=== PATIENT | male | born 1980 | race Caucasian/White ===

== ENCOUNTER 2018-09-22 14:14 | Inpatient (IN) | payer OTHER ==
[~2018-09-22] VITALS: Ht 177.8 cm; Wt 91.7 kg
[~2018-09-22 14:14] MED LIST: BACTRIM DS TAB1 EACH PO; CATAPRES0.1 MG PO; CREON 10 CAPSUL1 CA1 PO; METOPROLOL SUCC25 M1 PO; NORCO 5-325 TA1 EACH PO; PERCOCET 7.5-31 EACH PO; PROTONIX40 M1 PO; TRINATE TABLET1 TAB PO; VANCOMYCIN100 MG/M1 PO; VICODIN 5-5001 EACH PO; VITAMIN B-1100 M2 PO; XANAX1 MG PO; ZOFRAN4 MG PO
[2018-09-22 14:20] VITALS: BP 188/116
[2018-09-22 14:48] LABS: ABSOLUTE NEUTROPHILS 4.2 thou/uL (1.4-8.2); EOSINOPHILS 0.7 % (0.0-3.0); HEMOGLOBIN 15.7 gm/dL (14.0-18.0); RDW 13.5 % (10.5-14.5)
[2018-09-22 14:50] LABS: BASOPHILS 0.9 % (0.0-2.0); HEMATOCRIT 44.1 % (42.0-52.0); LYMPHOCYTES 18.1 % (24.0-44.0); MCH 32.8 pg (26.0-34.0); MCHC 35.6 g/dL (28.0-37.0); MCV 92.2 fL (80.0-100.0); MONOCYTES 4.7 % (1.0-8.0); PLATELET COUNT 170 thou/uL (150-400); POLYS 75.6 % (36.0-66.0); RBC 4.78 mil/uL (4.50-6.00); WBC 5.6 thou/uL (4.0-11.0)
[2018-09-22 14:54] LABS: BUN 21 mg/dL (7-18); CALCIUM 7.5 mg/dL (8.5-10.1); CHLORIDE 96 mmol/L (98-107); CREATININE 1.2 mg/dL (0.7-1.3); POTASSIUM 4.2 mmol/L (3.5-5.1); SODIUM 130 mmol/L (136-145)
[2018-09-22 15:01] LABS: DIRECT BILIRUBIN < 0.1 mg/dL (<0.1-0.3); LIPASE 427 U/L (73-393)
[2018-09-22 15:28] LABS: ALBUMIN 4.4 g/dL (3.4-5.0); ANION GAP 7 mmol/L (7-16); CO2 27 mmol/L (21-32)
[2018-09-22 15:42] LABS: GLUCOSE 259 mg/dL (74-106)
[2018-09-22 15:43] LABS: SGOT 199 U/L (15-37); SGPT 162 U/L (30-65)
[2018-09-22 15:59] LABS: TOTAL PROTEIN 8.6 g/dL (6.4-8.2)
[2018-09-22 16:07] LABS: URINE BILIRUBIN NEGATIVE (Negative); URINE BLOOD NEGATIVE (Negative); URINE CLARITY CLEAR; URINE COLOR YELLOW; URINE GLUCOSE-RANDOM* NEGATIVE (Negative); URINE KETONES NEGATIVE (Negative); URINE LEUKOCYTES NEGATIVE (Negative); URINE NITRITE NEGATIVE (Negative); URINE PROTEIN (DIPSTICK) NEGATIVE (Negative); URINE SPECIFIC GRAVITY 1.025 (1.005-1.035); URINE UROBILINOGEN 0.2 E.U./dl (0.2-1.0)
[2018-09-22 18:25] VITALS: BP 188/117
[2018-09-22 19:33] VITALS: BP 177/108
[2018-09-22 21:22] VITALS: BP 144/82
--- NOTE | 2018-09-23 01:14 | NUR ---
PT ARRIVED ON THE FALL @1949. A&OX4 DURING ASSESSMENT. WITH C/O PAIN ON ABDOMEN AND NAUSEA. MEDS GIVEN FOR MANAGEMENT SEE EMAR. POC DONE, FLUIDS INFUSING. DENIES GARCIA, OR SOB. WILL CONTINUE TO MONITOR TILL EOS
[2018-09-23 06:32] LABS: CREATININE 1.4 mg/dL (0.7-1.3); POTASSIUM 4.3 mmol/L (3.5-5.1)
[2018-09-23 06:36] VITALS: BP 173/103
[2018-09-23 08:12] VITALS: BP 140/103
--- NOTE | 2018-09-23 09:17 | NUR ---
Pt seen per nutrition screening, here with acute pancreatitis. Hx: pancreatitis, alcohol abuse, cocaine abuse, HTN. Currently on bowel rest, NPO except for meds/sips of liquid. Pt reports to RD this AM eating below his baseline for 3-4 days d/t pain. Eating well - multiple meals day - prior to onset of symptoms. States "weight is up." Records confirm this. Weighed 203-206# in 11/2015 and 04/2016, now at ~218#. BM reported last night, 09/22. Will monitor for timely diet advancement based on length of need for bowel rest, otherwise remains low nutrition risk. Did provide education on likely need for low fat diet when able to resume eating. See RD education note.
--- NOTE | 2018-09-23 10:13 | NUR ---
Assumed pt care at 0730.Pt in bed very restless and asking for cold water to drink.Assessment completed.vss but bp and hr was elevated.Nsg aluminum fabrication supervisor notified about moving the pt to telemetry bed but no response.Am meds given including ativan with relief.Dr Rivera notified.order noted.Pt will be transfered to [facility].Will comtinue to monitor.
[2018-09-23 12:10] VITALS: BP 131/93
[2018-09-23 15:31] VITALS: BP 136/96
--- NOTE | 2018-09-23 16:33 | NUR ---
ASSUMED PATIENT CARE AT 0700. PATIENT BEEN MOVED TO [facility] DUE TO RESTLESS COMFUSE. PATIENT STARTED AGIATED, IMPLUSIVE, HIT AND KICK NURSING STAFF. CIEW 13 AT 0800. STARTED RESTARINT AT 0830. PATIENT STILL TRY TO OUT OF BED WITH RESTARINT, CIW UP TO 20 AT 1020, TRANSFER TO ICU AT 1030. DR MCFARLAND AND FAMILY NOTIFIED.
--- NOTE | 2018-09-23 18:39 | NUR ---
PATIENT TRANSFER FROM . CIW 8. C/O ABD PAIN. PAIN MEDS GIVEN. NO N/V. WILL KEEP MONITOR.
[2018-09-23 20:05] VITALS: BP 111/86
[2018-09-23 23:05] LABS: GLYCOHEMOGLOBIN (HGB A1C) 5.3 % (4.8-5.6)
[2018-09-23 23:43] VITALS: BP 140/87
[2018-09-24] VITALS (39 sets, daily range): BP systolic 67–164; BP diastolic 36–88
[2018-09-24 02:26] LABS: AMP/METHAMP Negative (Negative); BARBITURATES Negative (Negative); BENZODIAZEPINES POSITIVE (Negative); COCAINE POSITIVE (Negative); METHADONE Negative (Negative); OPIATES POSITIVE (Negative); PCP Negative (Negative)
--- NOTE | 2018-09-24 02:42 | NUR ---
reassessed CIWA ; found that pt is actually a 23. gave addition 2 mg iv ativan. for a total of four milligrams of ativan as per his prescribed orders.
--- NOTE | 2018-09-24 04:07 | NUR ---
ENTIRE UNIT OF NURSES HAVE BEEN IN AND OUT OF THIS PATIENTS ROM ALL NIGHT. HE HAS REQUIRED CONTINUIOUS ATTENTION AND CARE. HE IS STRONG AND DETERMINED TO GET OUT OF BED. HIS HEART RATE HAS CONTINUED TO BE IN THE 130'SD TO 140'S ALL NIGHT. HIS RESP RATE HAS BEEN IN THE UPPER 30'S. I HAVE MEDICATED HIM AIMED AT CONTROLLING HIS ALCOHOL WITHDRAW. HE HAS HAD MULTIPLE INCIDENTS OF ALMOST FALLING WHEN ATTEMPTING TO GET OUT OF BED. HE HAS RECIEVED TWO FLUID BOLUSES TONIGHT, HELP HIS DEHYDRATION AND ELEVATED HEART RATE. HIS CIWA HAS BEEN HIGH A 23. AT THIS TIME HE IS RESTING AND HIS CIWA IS AN 8.
[2018-09-24 05:30] LABS: ALBUMIN 2.8 g/dL (3.4-5.0); CALCIUM 6.9 mg/dL (8.5-10.1); CREATININE 1.6 mg/dL (0.7-1.3); MAGNESIUM 1.7 mg/dL (1.8-2.4); POTASSIUM 4.4 mmol/L (3.5-5.1); TOTAL BILIRUBIN 2.2 mg/dL (<0.1-1.0); TOTAL PROTEIN 6.6 g/dL (6.4-8.2)
--- NOTE | 2018-09-24 07:00 | NUR ---
Pt received into room 242 earlier this am, made comfortable in bed and monitor applied. See rhythm strip. Pt extremely restless and started on precedex gtt. PRN fentanyl given for c/o abdominal pain with desired effect achieved. VS stable and SpO2 adequate on RA. Pt now resting comfortably and quietly. Continue with POC.
--- NOTE | 2018-09-24 13:40 | NUR ---
PT CONFUSED, RESTLESS, AGITATED TODAY. PRECEDEX GTT INFUSING. PRN ATIVAN GIVEN FOR ELEVATED CIWA. PT VERY IMPULSIVE PULLING AT LINES AND ATTEMPTING TO GET OUT OF BED FREQUENTLY, NOT RESPONDING TO SAFE LIMIT SETTING OR REDIRECTION. PT PLACED IN BILAT WRIST RESTRAINTS. SPOKE WITH PT'S BROTHER AND UPDATED HIM. CONSULTS PLACED TO PSYCH AND GI SERVICES. WILL CONTINUE TO MONITOR PATIENT.
--- NOTE | 2018-09-24 16:20 | NUR ---
VERY AGITATED THIS AFTERNOON. THREATENING AND ATTEMPTING TO KICK RN'S. SECURITY CALLED AND ATIVAN GIVEN. PT NOW SLEEPING. WILL CONTINUE TO MONITOR PATIENT.
--- NOTE | 2018-09-24 19:08 | NUR ---
VERY AGITATED, IMPULSIVE, ATIVAN GIVEN AND PRECEDEX INFUSING. DR TERRY NOTIFIED AND ORDER OBTAINED FOR SITTER. SECURITY AT BEDSIDE FREQUENTLY THIS AFTERNOON. REPORT GIVEN TO BRUNO KIRKLAND.
--- NOTE | 2018-09-24 21:43 | NUR ---
Pt has been pulling at restraints and attempting to get out of bed since change of shift despite Precedex, Ativan IVP, and Fentanyl. At 2049 pt became even more aggitated, swearing and calling nurses foul names and throwing lower body off the bed. It was noted at that time that left forearm IV was infiltrated. Security was called; staff able to get pt back in bed before security arrival and also able to notify MANAGER WILLOW line construction supervisor who gave order for IM Haldol. Pt given IM Haldol which decreased his aggitation enough for IV therapy to start a #22 guage in his upper right arm. Pt now resting comfortably, still completely disoriented, has visual hallucinations of beetles on floor of room, and intermittent sweating.
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
[2018-09-25] VITALS (29 sets, daily range): BP systolic 115–162; BP diastolic 54–93
[2018-09-25 05:08] LABS: ALBUMIN 2.5 g/dL (3.4-5.0); CALCIUM 7.4 mg/dL (8.5-10.1); CREATININE 1.6 mg/dL (0.7-1.3); MAGNESIUM 2.2 mg/dL (1.8-2.4); POTASSIUM 3.9 mmol/L (3.5-5.1); TOTAL BILIRUBIN 1.2 mg/dL (<0.1-1.0); TOTAL PROTEIN 6.4 g/dL (6.4-8.2)
[2018-09-25 05:40] LABS: HEMATOCRIT 34.8 % (42.0-52.0); HEMOGLOBIN 11.5 gm/dL (14.0-18.0); MCH 31.5 pg (26.0-34.0); MCHC 33.1 g/dL (28.0-37.0); MCV 95.2 fL (80.0-100.0); RBC 3.66 mil/uL (4.50-6.00); RDW 13.8 % (10.5-14.5); WBC 3.1 thou/uL (4.0-11.0)
--- NOTE | 2018-09-25 06:02 | NUR ---
Pt has continued to have a CIWA score of 15-19 despite Precedex, Ativan, and Haldol as ordered. Soft wrist restraints bilaterally. Right leg restraint released, but left leg remains in soft restraint. Pt continues to cuss at staff, attempts OOB frequently. Speech usually garbled. Precedex maxed at 1.8 mcg/kg/min. O2 sat remains > 93 % on room air despite sedatives. Monitor sinus rhythm. Alicia patent with very dark ethan urine. Pt has had sitter at bedside during night, but will not have one during day shift according to greenhouse transplanter. Plan is to keep pt with 1:1 nurse for now to maintain patient safety.
--- NOTE | 2018-09-25 16:12 | NUR ---
PATIENT HAS EXHIBITED INAPPROPRIATE AND UNRULY BEHAVIOR MOST OF THE DAY, RESTLESS, KICKING, CURSING AND USING INAPPROPRIATE LANGUAGE AND VERBALLY ABUSING STAFF. SECURITY OFFICERS CALLED MULTIPLE OF TIMES ALL DURING THE DAY TO ASSIST WITH KEEPING STAFF AND PATIENT SAFE. VITALS STABLE. DR. GALAN NOTIFIED DURING ROUNDING AND VIA PHONE CALL THIS AFTERNOON REGARDING PATIENT'S UNRULY BEHAVIOR. ORDERS FOR VERSED RECEIVED AND INITIATED. DR. MOSLEY WITH PSYCH ALSO NOTIFIED ALSO AND ROUNDED ON THE PATIENT AND CHANGED SOME MEDICATION ORDERS. PATIENT HAS CONTINUED WITH AGGRESIVE BEHAVIOR AND INAPPROPRIATE LANGUAGE AND NEW MEDS ADMINISTERED, PATIENT IS NOW STARTING TO CALM DOWN AND MUMBLE. WILL CONTINUE TO MONITOR FOR SAFETY OF PATIENT AND STAFF. PATIENT ASSIGNED WITH ONE TO NONE RN FOR SAFETY CONCERNS.
[2018-09-26] VITALS (41 sets, daily range): BP systolic 104–254; BP diastolic 53–121
--- NOTE | 2018-09-26 03:22 | NUR ---
PT HAS BEEN AGITATED, RESTLESS, COMBATIVE AND VERBALLY ABUSIVE TO STAFF, SECURITY OFFICERS HAS BEEN CALLED A FEW TIMES ON PT, MEDS GIVEN ORDERED. NOTIFIED GITA LEE OF PT'S CONTINUED UNSAFE BEHAVIORS AND RECEIVED ORDERS. GAVE MARY X1. PT SOMEWHAT CALM AFTER MARY, PROJECT INTERNSHIP CURRENTLY IN ROOM, WILL MONITOR,
[2018-09-26 07:01] LABS: ALBUMIN 2.5 g/dL (3.4-5.0); CALCIUM 7.7 mg/dL (8.5-10.1); CREATININE 1.2 mg/dL (0.7-1.3); POTASSIUM 3.8 mmol/L (3.5-5.1); TOTAL PROTEIN 5.6 g/dL (6.4-8.2)
--- NOTE | 2018-09-26 07:45 | NUR ---
RECEIVED REPORT AND ASSUMMED CARE. PATIENT INCONTIENT AND RESTLESS. SECURITY HERE. LINENS CHANGED. ATIVAN GIVEN.
--- NOTE | 2018-09-26 08:47 | NUR ---
Change in nutrition status to high risk with intubation 09/26
--- NOTE | 2018-09-26 10:15 | NUR ---
PATIENT VERY AGGITATED AND COMBATIVE, THROWING LEGS OVER LEFT SIDE OF THE BED AND SCOOTING DOWN. ATIVAN GIVEN EARILIER. DR GALAN HERE. ATTEMPTED TO ADJUST SEDATION BUT NO CHANGE IN STATUS. SECURITY HERE. PLAN TO INTUBATE
--- NOTE | 2018-09-26 11:45 | NUR ---
PATIENT INTUBATED BY ANETHETHIA, PROPOFOL AND ROCURNIUM GIVEN BY PROVIDER FOR THE PROCEDURE. 8.0 ETT USE AT 1053. ETT SECURED AND ORAL GASTRIC TUBE INSERTED. MONITOR SHOWING ST WITH A RATE OF 140 TO 160 AND BP ELEVATED. CARDIZEM, AND ATIVAN GIVEN AND PROPOFOL TITRATED TO SEDATE PATIENT. HEART RATE AND BP IMPROVED.
[2018-09-26 12:00] LABS: BE(vivo) -10.5 mmol/L (-2 to +3); HCO3 13.9 mmol/L (22.0-26.0); PCO2 26.9 mmHg (35.0-45.0); PO2 128.6 mmHg (80.0-100.0); pH 7.332 (7.360-7.450); sO2 98.4 % (92.0-98.0)
--- NOTE | 2018-09-26 13:05 | NUR ---
CONSULTED TO PLACE A PICC FOR A PATIENT POST INTUBATION IN THE ICU. ORDER AND CONSENT NOTED. THE PATIENT DOES NOT RESPOND TO TEACHING. THE RUE BASCILIC WAS WIDLEY PATENT. A #5F TRIPLE LUMEN POWER PICC WAS PLACED PER HOSPITAL POLICY AFTER A BEDSIDE TIMEOUT WAS COMPLETED. THE PICC WAS 50CM AND ADVANCED WITHOUT DIFFICULTY. A STAT CHEST XARAY WAS ORDERED FOR CONFIRMATION.
[2018-09-26 15:26] LABS: BE(vivo) -8.1 mmol/L (-2 to +3); HCO3 15.8 mmol/L (22.0-26.0); PCO2 27.7 mmHg (35.0-45.0); PO2 144.6 mmHg (80.0-100.0); pH 7.374 (7.360-7.450); sO2 98.8 % (92.0-98.0)
[2018-09-26 18:55] LABS: CALCIUM 8.5 mg/dL (8.5-10.1); CREATININE 1.2 mg/dL (0.7-1.3); POTASSIUM 3.8 mmol/L (3.5-5.1)
--- NOTE | 2018-09-26 19:00 | NUR ---
PATIENT RESTED MOST OF THE DAY, PRECIDEX WEANED OFF AND ATIVAN GIVEN PATIENT IS COUGHING, AND MORE RESTLESS AND INCONTIENT OF STOOL. SEDATION INCREASED AND ATIVAN GIVEN WITH LITTLE RELIEF
[2018-09-27] VITALS (36 sets, daily range): BP systolic 104–203; BP diastolic 51–138
[2018-09-27 03:04] LABS: HEMATOCRIT 30.1 % (42.0-52.0); HEMOGLOBIN 10.1 gm/dL (14.0-18.0); MCH 32.1 pg (26.0-34.0); MCHC 33.5 g/dL (28.0-37.0); MCV 95.7 fL (80.0-100.0); RBC 3.14 mil/uL (4.50-6.00); RDW 13.4 % (10.5-14.5); WBC 5.2 thou/uL (4.0-11.0)
[2018-09-27 03:15] LABS: ALBUMIN 2.2 g/dL (3.4-5.0); CALCIUM 7.9 mg/dL (8.5-10.1); CREATININE 1.3 mg/dL (0.7-1.3); POTASSIUM 3.2 mmol/L (3.5-5.1); TOTAL BILIRUBIN 0.5 mg/dL (<0.1-1.0); TOTAL PROTEIN 6.5 g/dL (6.4-8.2)
--- NOTE | 2018-09-27 08:00 | NUR ---
ASSUMED CARE. PATIENT RESTLESS AND SEDATED
[2018-09-27 08:15] LABS: BE(vivo) -7.3 mmol/L (-2 to +3); HCO3 16.4 mmol/L (22.0-26.0); PCO2 28.9 mmHg (35.0-45.0); PO2 82.3 mmHg (80.0-100.0); pH 7.371 (7.360-7.450)
--- NOTE | 2018-09-27 08:50 | NUR ---
PT HAD HIGH GRADE FEVER LAST NIGHT, SLIGHT RELIEF FROM TYLENOL ALSO ICE PACKS AND WET CLOTHS PLACED ALL OVER PT. CROSS CUT SAW OPERATOR CARLOS WAS NOTTIFIED AND BLOOD CULTURES WERE DRAWN AND SENT LAST NIGHT. KUB WAS DONE THIS AM. K REPLACED THIS MORNING.PT WAS KEPT MODERATELY SEDATED ON PROPOFOL, ATIVAN AND FENTANYL WAS GIVEN PRN. WITH LESS SEDATION PT GETS MORE TACHYPNEIC IN THE 30'S TO 40'S, WITH HIGH BP AND ELEVATED HR 130'S TO 140'S. PT HAS SHORT RESTFUL EPISODES, FOLLOWING ATIVAN / FENTANYL. FECAL MANAGEMENT WAS PLACED FOR LIQUID STOOL, AND IS DRAINING MODERATE AMOUNTS OF BROWN STOOL/ NG TUBE HAD 750 OUT OF BROWN FLUID. IVF INFUSING AT 125, URINE OUTPUT ADEQUATE. PT'S ABD IS SLIGHTLY FIRM AND DISTENDED. RESTRAINTS WERE MAINTAINED, PT EASILY AWAKE WITH STIMULATION OR SUCTIONING. THICK CREAMY SECRETIONS SUCTIONED, MODERATE AMOUNTS, SPUTUM SAMPLE WAS SENT TO LAB.
--- NOTE | 2018-09-27 20:00 | NUR ---
PATIENT KEPT SEDATED AND GIVEN PAIN MEDICATION NEEDED, REMAINS IN A ST WITH SLIGHT RELIEF AFTER FENTANYL. HYDRALAZINE GIVEN FOR ELEVATED BP WITH SOME RELIEF, PT REMANINED FEBRILE WITH COOLING BLANKET AND ICE PACKS IN PLACE, CONTINUE TO SUCTION COPIOUS AMTS OF THIN BROWN SECRETIONS.
[2018-09-28] VITALS (40 sets, daily range): BP systolic 80–179; BP diastolic 40–86
--- NOTE | 2018-09-28 05:09 | NUR ---
ASSUMED CARE OF PATIENT AT 1900. FEBRILE, TACHYCARDIC AND RESTLESS VERSED, PROPOFOL AND CARDIZEM TITRATED PER ORDERS, SEE FLOW SHEET. COOLING PAD PLACED UNDERNEATH PATIENT, RATHER THAN ON TOP. TEMPERATURE NOW WITHIN NORMAL LIMITS. HEART RATE NO LONGER IN THE 130, CARDIZEM GTT OFF AT 0400. COMPLETE BATH GIVEN. ORAL CARE WELL, TURNED Q2. APPEARS TO BE MUCH MORE COMFORTABLE AT THIS TIME. WORKING TOWARDS POC GOALS.
[2018-09-28 05:40] LABS: HEMATOCRIT 29.9 % (42.0-52.0); HEMOGLOBIN 10.2 gm/dL (14.0-18.0); MCH 32.3 pg (26.0-34.0); MCV 94.8 fL (80.0-100.0); RBC 3.16 mil/uL (4.50-6.00); RDW 13.6 % (10.5-14.5); WBC 9.2 thou/uL (4.0-11.0)
[2018-09-28 05:59] LABS: ALBUMIN 1.9 g/dL (3.4-5.0); CALCIUM 8.3 mg/dL (8.5-10.1); CREATININE 1.4 mg/dL (0.7-1.3); POTASSIUM 3.8 mmol/L (3.5-5.1); TOTAL BILIRUBIN 0.6 mg/dL (<0.1-1.0); TOTAL PROTEIN 6.5 g/dL (6.4-8.2)
--- NOTE | 2018-09-28 09:28 | NUR ---
Recommend tube feeding of vital high protein to start 30ml/hr and progress as tolerated to goal of 45ml/hr while on propofol
--- NOTE | 2018-09-28 14:54 | HC ---
[facility] [place] [address] CONSULTATION Name: MICKI HANSEN Room #: 242-P [facility] IN M.R.#: [id number] Admission: 09/22/18 Attend Phys: Taylor Rivera Discharge: Date of : 76 Report #: [id number] THIS REPORT FOR: //name// CC: KELLY physician/PCP Taylor Rivera DATE OF SERVICE: 09/25/2018 REASON FOR CONSULTATION: The patient has a history of severe agitation and delirium at this point. He has a history of alcoholic pancreatitis. He also has a history of anxiety. The patient is very upset, agitated. He lacks capacity as he does not understand the risks and benefits of leaving the hospital at this time. He cannot reliably discuss his care and condition. He is very agitated, and they have been trying different medication approaches. We were asked to see this patient actually for alcohol and rehabilitation options, essentially those would be better served by psychotherapist social worker in the hospital looking around to different programs based on the patient's desire. We will help follow him for that and also help assist with agitation as well. The patient has been showing fairly stable vital signs. He is on a Precedex drip. They are about to start a Versed drip. He is on clonidine. So far, they have tried to use Haldol, a dose of Geodon. He has had 10 mg of Ativan in the last 24-hour period. He is rambling. He is not easily understood. He does not keep track of conversation. He is fairly agitated. He is in a soft restraint. He is not finding them, but he is frequently restless and tries to get up. He cannot provide a great history. He does acknowledge that he was drinking and he was clear on admission. He was not taking any medications, and he is positive for amphetamines and stimulants prior to admission. PSYCHIATRIC HISTORY: Polysubstance abuse, anxiety, alcohol abuse, cocaine abuse. MEDICAL HISTORY: He has acute kidney insufficiency, fever. He has metabolic disturbances, hypertension. ALLERGIES: No known drug allergies. His vital signs are stabilizing. He has acute pancreatitis. MENTAL STATUS EXAMINATION: The patient is alert. He is orientated to being at [facility] and himself. He does not know the time. Does not know how long he has been here. He is not able to discuss his care and treatment reliably. Affect is intense, wide ranging. Thought process is perseverative. Insight and judgment are poor and impaired and lacks capacity to make medical [facility] [address] [place] [address] CONSULTATION Name: MICKI HANSEN Room #: 242-P [facility] IN [facility]#: [id number] Admission: 09/22/18 Attend Phys: Taylor Rivera Discharge: Date of : 76 Report #: [id number] decision at this time. IMPRESSION: AXIS I: 1. Delirium. 2. Agitation. 3. Anxiety. 4. Polysubstance abuse. AXIS II: Deferred. AXIS III: As above. AXIS IV: Severe. AXIS V: Global Assessment of Functioning currently 20%. PLAN: We will add Thorazine for agitation. We are going to start a Versed drip, but his vital signs are more stable, so I try to actually keep the Versed drip on the lower end and I will discuss this with the nurse. I think we are seeing is a mix of delirium and agitation and less of the withdrawal side as days have gone by, so on Precedex, hopefully should be better, the Versed is only for behavioral control rather than withdrawal. Titrated back off benzodiazepine injection as much as he can at this point. Thank you for the consultation. We will follow the patient with you closely. Any questions, give us a call. <ELECTRONICALLY SIGNED> By: Amelia Ron MD 09/28/18 [id number] [id number] Jesus Manuel Gastelum MD /nt
--- NOTE | 2018-09-28 19:23 | HC ---
[facility] [place] [address] CONSULTATION Name: MICKI HANSEN Veena Room #: 242-P [facility] IN ..#: [id number] Admission: 09/22/18 Attend Phys: Taylor Rivera Discharge: Date of : 76 Report #: [id number] THIS REPORT FOR: //name// CC: FAM physician/PCP Taylor Rivera DATE OF SERVICE: 09/26/2018 REFERRING PHYSICIAN: Dr. Rivera. REASON FOR REFERRAL: Acute respiratory distress, alcohol withdrawal. HISTORY OF PRESENT ILLNESS: The patient is a 38-year-old white male who was admitted on 09/22/2018 with abdominal pain. He was subsequently found to have alcohol withdrawal, acute pancreatitis. He also has a history of polysubstance abuse. Since admission, the patient has had trouble with alcohol withdrawal. He is on alcohol withdrawal protocol, he was given Ativan, etc. The patient is awake, intermittently confused, he was said to be combative, agitated at times. He appears somewhat restless. PAST MEDICAL HISTORY: As mentioned above including history of alcohol abuse, marijuana use, apparently cocaine use based on urine drug screen, history of pancreatitis, hypertension. PAST SURGICAL HISTORY: Cholecystectomy. ALLERGIES: None noted. MEDICATIONS: From home are clonidine 0.1 mg b.i.d. CURRENT MEDICATIONS: Reviewed in the MAR. FAMILY HISTORY: Unknown. SOCIAL HISTORY: He does smoke, alcohol abuse as mentioned above. Also, smokes marijuana. REVIEW OF SYSTEMS: Deferred as the patient is encephalopathic. PHYSICAL EXAMINATION: GENERAL: He is awake, appears restless, episodically confused. VITAL SIGNS: Temperature of 102 degrees Fahrenheit, pulse is 90, respiratory rate is 25, blood pressure is 120/78 mmHg, saturation 99%. HEENT: Normocephalic, atraumatic. NECK: Supple, without lymphadenopathy or thyromegaly. [facility] [address] [place] [address] CONSULTATION Name: MICKI HANSEN Room #: 242-P [facility] IN ..#: [id number] Admission: 09/22/18 Attend Phys: Taylor Rivera Discharge: Date of : 76 Report #: [id number] CHEST: Breath sounds are fair, clear without any obvious rales or wheezes. CARDIOVASCULAR: Normal S1, S2. No murmurs or gallop. There is no JVD, no carotid bruit. Pulses are 2+/4+ bilaterally. ABDOMEN: Mildly distended. No obvious rebound tenderness. GENITOURINARY: Deferred. RECTAL: Deferred. EXTREMITIES: There is no edema, cyanosis or clubbing. LABORATORY DATA: Portable chest x-ray shows small lung volumes, bibasilar atelectasis, increasing interstitial markings. Lipase 1200. Recent CT abdomen and pelvis shows acute pancreatitis. Arterial blood gas revealed pH 7.33, pCO2 26, pO2 128 on FiO2 at 80%. Electrolytes: Sodium 138, potassium 3.8, chloride 106, CO2 is 19, BUN is 16, creatinine is 1.2. Liver enzymes are mildly abnormal. WBC hemoglobin 11.5, platelets are mildly decreased. Albumin 2.5. IMPRESSION: 1. Acute alcohol withdrawal, severe. 2. Encephalopathy with delirium, agitation. 3. Acute pancreatitis. 4. Polysubstance abuse including cocaine and marijuana. 5. Alcoholic liver disease. 6. Hypertension. 7. Tobacco abuse. No known history of chronic obstructive pulmonary disease. 8. Acute kidney injury. RECOMMENDATION AND DISCUSSION: Pulmonary service was asked to see the patient regarding possible intubation. At this time, the patient is able to maintain airway and saturation is adequate on supplemental O2. It appears that the patient would benefit from increased doses of benzodiazepine for his withdrawal symptoms. I note that the protocol calls for Ativan every 2 hours. Would increase the interval to every 20-30 minutes at 1-2 mg if possible. May need additional sedation such as Diprivan if needed. If, however, with the sedation, patient's airway is compromised or develops profound hypoxia, at that point in time, I think elective intubation will be appropriate. At this time, I would recommend increasing his medications for alcohol withdrawal. IV has been an issue. I would suggest a large bore IV possible or maybe even a PICC line. I do not think intubating the patient to place an IV is necessary, but I consensus increasing sedation as tolerated. This was discussed in detail with the primary medicine team and nursing. Critical care time [address] [address] CONSULTATION Name: MICKI HANSEN Room #: 242-P [facility] IN .R.#: [id number] Admission: 09/22/18 Attend Phys: Taylor Rivera Discharge: Date of : 76 Report #: [id number] Thank you for this consultation. <ELECTRONICALLY SIGNED> By: Raul Weeks MD 09/28/18 [id number] 1023 Raul Weeks MD /nt
[2018-09-29] VITALS (24 sets, daily range): BP systolic 93–143; BP diastolic 53–98
[2018-09-29 05:28] LABS: BE(vivo) -6.1 mmol/L (-2 to +3); HCO3 19.2 mmol/L (22.0-26.0); PCO2 37.2 mmHg (35.0-45.0); PO2 249.5 mmHg (80.0-100.0); pH 7.331 (7.360-7.450); sO2 99.5 % (92.0-98.0)
[2018-09-29 05:46] LABS: HEMATOCRIT 23.7 % (42.0-52.0); MCH 32.1 pg (26.0-34.0); MCHC 34.1 g/dL (28.0-37.0); MCV 94.2 fL (80.0-100.0); RBC 2.52 mil/uL (4.50-6.00); WBC 10.9 thou/uL (4.0-11.0)
[2018-09-29 05:55] LABS: CALCIUM 8.5 mg/dL (8.5-10.1); CREATININE 1.3 mg/dL (0.7-1.3); POTASSIUM 3.9 mmol/L (3.5-5.1)
[2018-09-29 05:59] LABS: ALBUMIN 1.8 g/dL (3.4-5.0); DIRECT BILIRUBIN 0.3 mg/dL (<0.1-0.3); TOTAL BILIRUBIN 0.4 mg/dL (<0.1-1.0); TOTAL PROTEIN 5.2 g/dL (6.4-8.2)
[2018-09-29 06:05] LABS: HEMOGLOBIN 8.1 gm/dL (14.0-18.0)
--- NOTE | 2018-09-29 06:44 | NUR ---
PATIENT ON LIGHT SEDATION, FOLLOWS COMMANDS. SINUS RHYTHM ON FILER HELPER. ON VENTILATOR FIO2 60%. OG TUBE TO LOW INTERMITTENT SUCTION. WALSH AND RECTAL TUBE INTACT. TEMPERATURE NORMALIZED. RESTRAINTS RENEWED. TURNED Q2H. FAMILY UPDATED ON THE PLAN OF CARE, NO SIGNS OF ACUTE DISTRESS NOTED AT THIS TIME. WILL CONTINUE TO MONITOR.
--- NOTE | 2018-09-29 17:34 | NUR ---
CM ASSESSMENT: CASE OPENED FOR DC PLANNING. CLINICAL INFO REVIEWED. PT ADMITTED WITH ABD PAIN, ACUTE PANCREATITIS, ETOH WITHDRAWAL ONCE HERE. ESCALATING WITHDRAWAL BEHAVIORS WARRANTED INTUBATION AND CONINTUES ON VENT. LIVES WITH BROTHER IN HOUSE AND WORKS BUT DOES NOT HAVE HEALTH INSURANCE. PT HAS BEEN ADMITTED TO [facility] IN PAST FOR ETOH WITHDRAWAL AND DECLINED RESOURCES FOR TREATMENT. WILL FOLLOW TO ASSIST WITH NEEDS AT DC AND APPROACH PT FOR ETOH RESOURCES AGAIN.
[2018-09-30] VITALS (24 sets, daily range): BP systolic 95–168; BP diastolic 55–101
[2018-09-30 06:01] LABS: HEMATOCRIT 24.1 % (42.0-52.0); HEMOGLOBIN 8.1 gm/dL (14.0-18.0); MCH 32.1 pg (26.0-34.0); MCHC 33.7 g/dL (28.0-37.0); MCV 95.2 fL (80.0-100.0); RBC 2.54 mil/uL (4.50-6.00); RDW 14.4 % (10.5-14.5); WBC 9.1 thou/uL (4.0-11.0)
--- NOTE | 2018-09-30 07:23 | NUR ---
PATIENT ON SEDATION, FOLLOWS COMMANDS AND ABLE TO NOD TO YES/NO QUESTIONS. PATIENT IS IMPULSIVE AND TRIES TO PULL OUT TRACHEAL TUBE FOR VENTILATOR. SINUS TACHYCARDIA ON GRAPHITE GRINDER. OG TUBE PATENT, TOLERATING TUBE FEEDING. WALSH AND FECAL MANAGEMENT SYSTEM INTACT. BLOOD SUGAR MONITORED. NO SIGNS OF ACUTE DISTRESS NOTED AT THIS TIME. WILL CONTINUE TO MONITOR.
--- NOTE | 2018-09-30 10:51 | NUR ---
PT'S MOTHER AND SISTER HERE THIS AM. MOTHER IS АЛЕКСАНДР JACOBO [phone]. DR. GALAN SPOKE WITH MOTHER AND SISTER. CM TO FOLLOW TO CALL MOTHER NOT IN PT ROOM OR WAITING ROOM WHENCHECKED AT 1045. PT REMAIN ON VENT AND DIFFICULT TO SEDATE ON VERSED AND FENTANYL GTTS SO PROPOFOL WAS RESTARTED.
[2018-09-30 11:11] LABS: BE(vivo) -2.9 mmol/L (-2 to +3); HCO3 22.8 mmol/L (22.0-26.0); PCO2 43.5 mmHg (35.0-45.0); pH 7.338 (7.360-7.450); sO2 84.3 % (92.0-98.0)
[2018-09-30 11:13] LABS: PO2 51.6 mmHg (80.0-100.0)
--- NOTE | 2018-09-30 16:52 | NUR ---
MET WITH PT'S MOTHER IVETTE, SHE IS FROM [place]. PT'S BROTHER BRANDI ALSO [place]. PT LIVES WITH BRANDI. FAMILY INTERESTED IN PT GOING TO DRUG/ETOH TREATMENT WHEN MEDICALLY STABLE INFORMED THEM CASE MANAGEMENT TO FOLLOW PT AND PROVIDE RESOURCES FOR FOLLOW UP CARE AND DRUG/ALCOHOL TREATMENT TO PT BUT ULTIMATELY PT'S DECISION.
--- NOTE | 2018-09-30 19:40 | NUR ---
PT CONTINUES TO BE RESTLESS AND AGITATED THIS AM. DR GALAN HERE THIS AM AND DISCUSSED SEDATION PLAN. VERSED TITRATED UP TO 10MG/HR AND FENT CONTINUES. PROPOFOL TURNED OFF. PT BECAME VERY AGITATED, THRASHING AND O2 SATS DECREASED. PROPOFOL RESTARTED. ABG'S DRAWN AND RESULTS GIVEN TO DR MARADIAGA. COPIOUS AMOUNT OF THICK CHENG SPUTUM SUCTIONED. PT'S FAMILY AT BEDSIDE AND UPDATED. TUBE FEEDING INCREASED ORDERED. REPORT GIVEN TO ORE FEEDER RN.
[2018-10-01] VITALS (24 sets, daily range): BP systolic 108–156; BP diastolic 58–97
[2018-10-01 05:31] LABS: HEMATOCRIT 24.1 % (42.0-52.0); MCHC 33.4 g/dL (28.0-37.0); RBC 2.51 mil/uL (4.50-6.00); RDW 14.3 % (10.5-14.5); WBC 7.3 thou/uL (4.0-11.0)
[2018-10-01 05:47] LABS: ALBUMIN 1.7 g/dL (3.4-5.0); CALCIUM 8.5 mg/dL (8.5-10.1); CREATININE 1.3 mg/dL (0.7-1.3); MAGNESIUM 2.2 mg/dL (1.8-2.4); TOTAL BILIRUBIN 0.6 mg/dL (<0.1-1.0); TOTAL PROTEIN 6.1 g/dL (6.4-8.2)
[2018-10-01 05:49] LABS: POTASSIUM 2.9 mmol/L (3.5-5.1)
[2018-10-01 05:57] LABS: BE(vivo) -0.7 mmol/L (-2 to +3); HCO3 24.7 mmol/L (22.0-26.0); PCO2 44.6 mmHg (35.0-45.0); PO2 145.4 mmHg (80.0-100.0); pH 7.362 (7.360-7.450); sO2 98.8 % (92.0-98.0)
--- NOTE | 2018-10-01 06:00 | NUR ---
ASSUMED CARE OF PT. AT 1900. PT. REMAINSSEDATED, WILL GET AGITATED WHEN MOVED. MEDICATION TITRATION CHARTED. PT. REMAINS FEBRILE. VSS, SINUS TACHYCARDIC ON MONITOR. ADEQUATE URINARY OUPUT, FECAL MANAGEMENT SYSTEM IN PLACE. TUBE FEEDINGS TURNED OFF BETWEEN 2000 AND MIDNIGHT DUE TO HIGH RESIDUALS. PLAN OF CARE IS TO CONTINUE TO REST PT. AND KEEP ON MECHANICAL VENTILATION WITH SEDATION. WILL CONTINUE TO MONITOR.
--- NOTE | 2018-10-01 17:16 | NUR ---
Shift summary; Pt was sedated. Calm. No verbal response to voice. Propofol gtt @50mcg/min, Versed gtt @10mcg, fentanyl gtt @10ml/hr. Vent A/C, RR14, tV-550, FiO2 55%. OG tube in place. Restraint x2. Alicia and fecal system in place. 0800-FiO2 was changed to 45% 0950-Dr. Rivera at bedside and told this nurse to do sedation vacation. 0955-Propofol was turned off for sedation vacation. 1017-Pt opened eyes, calm and followed commands to credit card associate this nurse's fingers. 1120-Paged Dr. Weeks, terminal gauger supervisor re weaning Vent out. Dr. Weeks returned to the phone and stated that pt should be on Vent continuously since CXray for today was shown possible pneumonia. 1125-Pt became very restless. Fecal system is out. 1127-Propofol was resumed @50mcg. 1137-RT at bedside and adjusted ET tube @27cm as CX-ray showed ET TUBE was a little shorter. 1200-Versed gtt was resumed @6mcg. 1236-Cx-ray was done @[address] Weeks reviewed the images. 1300-BS 109. 1330-Fecal system was replaced. Bath was done w/ changing bed linens.
--- NOTE | 2018-10-01 19:08 | NUR ---
Shift summary; 0800-Pt was not responsive to voice or painful stimulus. Only gag reflux was present. Pupil react to light sluggish on L side. Fever overnight and remained to 37.8 to 38.2. LS coarse w/ VENT; Fio2 50%, propofol gtt started @ 40. This nurse titrated to 30mcg/min. OG tube in place w/ TF @40. [id number] edema present, especially on UE. Alicia remained in place. 0920-RT changed Fio2 to 40% 1045-Cooling blanket applied since application of cold wash cloth and ice pack did not decrease the core body temp. 1210-Pt was off unit for CT & CTA on head 1456-Ibuprofen was given for fever as Dr. Valencia ordered. Propofol was titrated to 19mcg/min. No movement was noticed. Family members in & out through the day 1800-Propofol was turned off. Tylenol was given for fever.
[2018-10-02] VITALS (23 sets, daily range): BP systolic 111–154; BP diastolic 62–95
--- NOTE | 2018-10-02 04:36 | NUR ---
NO NEW CHANGES. PT. REMAINS SEDATED WITH GTTS. TITRATION CHARTED. ASSESSMENTS AND VITAL SIGNS CHARTED. PT. BECASME AGITIATED AFTER CHEST XRAY. PLAN OF CARE IS TO CONTINUE TO KEEP PT. SEDATED FOR REST AND SAFETY. SEDATION VACATION TO BE DONE DURING THE AM. WILL CONTINUE TO MONITOR.
[2018-10-02 04:52] LABS: BE(vivo) 1.4 mmol/L (-2 to +3); HCO3 25.9 mmol/L (22.0-26.0); PCO2 40.6 mmHg (35.0-45.0); PO2 82.4 mmHg (80.0-100.0); pH 7.423 (7.360-7.450); sO2 96.3 % (92.0-98.0)
[2018-10-02 05:08] LABS: HEMATOCRIT 24.6 % (42.0-52.0); HEMOGLOBIN 8.2 gm/dL (14.0-18.0); MCH 31.5 pg (26.0-34.0); MCHC 33.2 g/dL (28.0-37.0); MCV 94.9 fL (80.0-100.0); RBC 2.6 mil/uL (4.50-6.00); RDW 13.6 % (10.5-14.5); WBC 7.8 thou/uL (4.0-11.0)
[2018-10-02 05:24] LABS: ALBUMIN 1.9 g/dL (3.4-5.0); CALCIUM 8.9 mg/dL (8.5-10.1); CREATININE 1.1 mg/dL (0.7-1.3); MAGNESIUM 2.1 mg/dL (1.8-2.4); POTASSIUM 3.5 mmol/L (3.5-5.1); TOTAL BILIRUBIN 0.8 mg/dL (<0.1-1.0); TOTAL PROTEIN 6.5 g/dL (6.4-8.2)
--- NOTE | 2018-10-02 18:53 | NUR ---
Shift summary notes 0730-Pt responsed to voice, contacted this nurse's eys. Coarse LS. S. tachy and SR. Edema on L foot and hands, caty more than other body parts. Distended abd. Fecal system remained in place. Propofol, Versed, & fentanyl gtt was infusing. More secretions- sunctioned. Brushed teeth. 1010-Started sedation vacation by turning off propofol and versed. 1020-Pt started moving and pulling his arms toward him. This nurse and Arlene, the other RN talked to pt. Pt nodded by showing his understand when nurses talked to pt but pt tried dangling his legs out of bed, pulling arms as soon as nurses turned back. 1050-Pt was very agitated and propofol and versed turned on back. It took while until pt became calm again @1100. Will continue to monitor
[2018-10-03] VITALS (24 sets, daily range): BP systolic 96–188; BP diastolic 6–98
--- NOTE | 2018-10-03 04:35 | NUR ---
ASSUMED CARE OF PT. AT 1900. NO NEW CHANGES. PT. STILL SEDATED WITH GTTS, MEDICATION TITRATION CHARTED. STILL BECOMES AGITATED WHEN OFF GTTS FOR SHORT PERIODS OF TIME. FEBRILE THROUGHOUT NIGHT. VSS. ASSESSMENTS AND VITAL SIGNS CHARTED. TUBE FEEDINGS TURNED OFF AT 0400 DUE TO HIGH RESIDUAL. PLAN OF CARE IS TO CONTINUE TO KEEP PT. SEDATED AND TO PERFORM A SEDATION VACATION THIS AM WITH BROTHER AT BEDSIDE. WILL CONTINUE TO MONITOR.
[2018-10-03 05:43] LABS: HEMATOCRIT 25.3 % (42.0-52.0); HEMOGLOBIN 8.5 gm/dL (14.0-18.0); MCH 31.4 pg (26.0-34.0); MCHC 33.6 g/dL (28.0-37.0); MCV 93.5 fL (80.0-100.0); RBC 2.7 mil/uL (4.50-6.00); RDW 13.4 % (10.5-14.5); WBC 6.6 thou/uL (4.0-11.0)
[2018-10-03 05:56] LABS: CALCIUM 8.8 mg/dL (8.5-10.1); POTASSIUM 3.2 mmol/L (3.5-5.1)
--- NOTE | 2018-10-03 10:49 | NUR ---
Pt having poor tolerance to enteral nutrition, residual up to 275ml. Unable to reach goal rate and had prolonged npo status prior. Recommend consider start of TPN instead goal rate 80ml/hr, 15%dex, 7%AA, no lipids.
--- NOTE | 2018-10-03 19:00 | NUR ---
PT DOES FOLLOW COMMANDS WHEN SEDATION IS LIGHTENED
--- NOTE | 2018-10-03 20:02 | NUR ---
eND OF SHIFT NOTE. PT NOT ADVANCING TOWARDS GOALS. HAD TO RESEDATED ON PROPOFOL. VERY RESTLESS. DR. SOSA AWARE. VSS. COPIOUS ORAL SECRETIONS. REMAINS SEDATED ON FENTANYL, PROPOFOL , VERSED AND PRECEDEX. DR. SOSA STATES TO CONTIUES ALL OF THESE BUT WEAN DOWN THE VERSED.
[2018-10-04] VITALS (22 sets, daily range): BP systolic 111–147; BP diastolic 61–89
--- NOTE | 2018-10-04 04:46 | NUR ---
PT REMAINS RESTLESS AT TIMES WHILE ON SEDATION GTTS. CONTINUES ON VENT 40% FIO2 SATS 96% AND LUNGS COARSE. PT AFEBRILE. PT SR ON MONITOR. CONTINUED WITH TUBEFEED OFF AND ON THROUGHOUT SHIFT WITH MID SHIFT HIGH RESIDUAL TO PLACED ON HOLD FOR ABOUT 4 HOURS. PT AM LABS TO BE DRAWN AND REVIEWED.
[2018-10-04 05:16] LABS: HEMATOCRIT 24.4 % (42.0-52.0); HEMOGLOBIN 8.4 gm/dL (14.0-18.0); MCH 32.1 pg (26.0-34.0); MCHC 34.4 g/dL (28.0-37.0); MCV 93.1 fL (80.0-100.0); RBC 2.62 mil/uL (4.50-6.00); RDW 13.1 % (10.5-14.5); WBC 6.1 thou/uL (4.0-11.0)
[2018-10-04 05:20] LABS: CALCIUM 8.7 mg/dL (8.5-10.1); CREATININE 0.9 mg/dL (0.7-1.3); POTASSIUM 3.5 mmol/L (3.5-5.1)
[2018-10-04 05:27] LABS: ALBUMIN 2.2 g/dL (3.4-5.0); DIRECT BILIRUBIN 0.4 mg/dL (<0.1-0.3); TOTAL BILIRUBIN 0.7 mg/dL (<0.1-1.0); TOTAL PROTEIN 6.8 g/dL (6.4-8.2)
--- NOTE | 2018-10-04 10:15 | NUR ---
BREAKS THRU SEDATION W/O ANY STIMULATION.PT KICKING AT NURSES,PULLING STRONGLY AGAINT WRIST RESTRAINTS.SCOOTED DOWN IN BED,ALMOST FLAT. TF OFF,FLUSHED W WATER.VERSED GTT TITRATED UP TO 10MG/HR.LEGS RESTRAINED.WILL D/W .--VW
--- NOTE | 2018-10-04 12:09 | NUR ---
ASSUMED CARE OF PATIENT AT 0700, PATIENT AGITATED AT THIS TIME. PATIENT ON VERSED, PROPOFOL, PRECEDEX, AND FENTANYL AND CONTINUE TO RISE UP IN BED. PATIENT ALSO TRIEND TO KICK THIS NURSE IN THE JAW ALONG WITH 2 OTHER NURSES.PATIENT SEDATION INCREASED AND PATIENT RESTRAINED IN ALL 4 EXTRIMITIES. NO OTHER CONCERNS AT THIS TIME. WILL CONTINUE TO MONITOR AND CARE PER PLAN OF CARE.
--- NOTE | 2018-10-04 16:44 | NUR ---
FOLLOWING FOR DC PLANNING. CLINICAL INFO REVIEWED. PT REMAINS ON VENT WITH ENCEPHALOPATHY AND ON PROPOFOL, PRECEDEX, FENTANYL AND VERSED GTTS FOR SEDATION AND STILL ABLE TO MOVE AROUND IN BED. PSYCH ALSO FOLLOWING TO ASSIST WITH MEDS. PT LIVES WITH BROTHER MICKI, HAS MOTHER AND SISTER IN [place] WHO WERE HERE AT END OF LAST WEEK. PT WITHOUT HEALTH INSURANCE AND [employer] FOLLOWING FOR MEDICA/DISABILITY SCREENING. THESIA FROM [employer] INDICATES SHE HAS REACHED OUT TO BROTHER MICKI BUT HAS NOT CONENCTED OF NOW. UNCLEAR DC PLAN. FAMILY INDICATES THEY HOPE PT WILL GO FOR DRUG AND ETOH TREATMENT BUT INFORMED WILL HAVE TO WAIT UNTIL PT ABLE TO DISCUSS OPTIONS AND BE AGREEABLE.
[2018-10-05] VITALS (19 sets, daily range): BP systolic 103–136; BP diastolic 59–87
--- NOTE | 2018-10-05 04:42 | NUR ---
PT CURRENTLY SEDATED ON PROPOFOL, VERSED, FENTANYL, PRECEDEX. ABLE TO WEAN PROPOFOL OFF LAST NIGHT VERY BREIFLY, DURING THAT, PT GOT AGITATED AND TRYING TO SIT UP IN BED AND LEAN TO THE SIDE TO PULL ETT OUT WITH HAND. GAVE PRN ATIVAN AND ZYPREXA WITH LITTLE RELIEF. HAD TO START PROPOFOL BACK UP. PT REMAINS SR ON MONITOR. PT AFEBRILE. NOW ON 60% FIO2 VIA VENT SATS 96% AM LABS TO BE DRAWN. CONTINUES ON MAINTENANCE IVFs. PT HAS NOT BEEN TOLERATING TUBE FEEDING AND IT HAS REMAINED OFF SINCE DAY SHIFT YESTERDAY WITH HIGH RESIDUALS.
--- NOTE | 2018-10-05 08:41 | EEG ---
[facility] [place] [address] ELECTROENCEPHALOGRAM Name: MICKI HANSEN Room #: 242-P [facility] IN M.R.#: [id number] Admission: 09/22/18 Attend Phys: Taylor Curry Discharge: Date of : 76 Report #: [id number] THIS REPORT FOR: //name// CC: FAM physician/PCP Taylor Rivera DATE OF SERVICE: 09/27/2018 This patient is being evaluated for the possibility of seizure. EEG was done by placing the electrodes by standard 10-20 system of electrode placement. Both referential and sequential montages were used for recording. Background activity in this patient's EEG is up to about 8-9 Hz and 30 microvolt. It does become slow in between. Photic stimulation is unremarkable. No active epileptiform activity was noticed during this record. IMPRESSION: In spite of being on propofol, this patient's EEG is relatively well formed. No active epileptiform activity was noticed during this record. Thank you very much for this referral. <ELECTRONICALLY SIGNED> By: Pool Breaux MD 10/05/18 0841 [id number] Pool Breaux MD /nt
--- NOTE | 2018-10-05 09:40 | NUR ---
Recommend start TPN w/pharmacy to manage. Suggest 12.5%dex, 6%AA, at 85ml/hr goal, NO lipids. Recommend discontinue D5 fluids.
--- NOTE | 2018-10-05 19:13 | NUR ---
ASSUMED CARE THIS AM, SEDATED AND INTUBATED WITH BUE SOFT RESTRAINTS. RESPONDS TO PAINFUL STIMULI. SR ON MONITOR. BP WNL. GOAL TODAY TO WEAN OFF VERSED AND FENTANYL DRIPS AND USE ATIVAN AND ZYPREXA PRN. NOT TOLERATING TUBE FEEDS SO POSSILBLY START TPN. 1400: CT OF ABDOMEN COMPLETED. 1800: VERSED NOW AT 5MG/HR. FENTANYL NOW AT 25 MKG/HR. TOLERATING WELL WITH THE ADDITION OF ATIVAN IV AND ZYPREXA IM.
[2018-10-06] VITALS (75 sets, daily range): BP systolic 106–195; BP diastolic 58–117
--- NOTE | 2018-10-06 03:22 | NUR ---
ASSUMED CARE OF PATIENT AT 1900. TPN STARTED. WEANING ATTEMPTED FOR FENTYNAL, VERSED, PRECEDEX AND PROPOFOL, SEE FLOW SHEET. PATIENT INCREASINGLY AGITATED, THROWING LEGS OUT OF BED, JERKING HEAD. ATIVAN AND OLANZAPRINE GIVEN ORDERED, MINIMAL EFFECT. ONE LARGE BOWEL MOVEMENT, DID NOT TOLERATE CLEANING UP WELL. REMAINS TACHYCARDIC AND TACHYPNIC WELL HYPERTENSIVE. NOT PROGESSING TOWARDS POC GOALS.
[2018-10-06 04:55] LABS: BE(vivo) 0.5 mmol/L (-2 to +3); HCO3 24.6 mmol/L (22.0-26.0); PCO2 37.1 mmHg (35.0-45.0); PO2 89.6 mmHg (80.0-100.0); pH 7.439 (7.360-7.450); sO2 97.1 % (92.0-98.0)
[2018-10-06 05:58] LABS: ABSOLUTE NEUTROPHILS 7.4 thou/uL (1.4-8.2); BASOPHILS 0.1 % (0.0-2.0); EOSINOPHILS 1.1 % (0.0-3.0); HEMATOCRIT 26.2 % (42.0-52.0); LYMPHOCYTES 11.1 % (24.0-44.0); MCH 31.7 pg (26.0-34.0); MCHC 34.3 g/dL (28.0-37.0); MCV 92.5 fL (80.0-100.0); MONOCYTES 2.9 % (1.0-8.0); POLYS 84.8 % (36.0-66.0); RBC 2.84 mil/uL (4.50-6.00); RDW 13.3 % (10.5-14.5); WBC 8.7 thou/uL (4.0-11.0)
[2018-10-06 06:00] LABS: PLATELET COUNT 402 thou/uL (150-400)
[2018-10-06 06:22] LABS: ALBUMIN 2.3 g/dL (3.4-5.0); CALCIUM 8.4 mg/dL (8.5-10.1); CREATININE 0.8 mg/dL (0.7-1.3); DIRECT BILIRUBIN 0.2 mg/dL (<0.1-0.3); MAGNESIUM 2.3 mg/dL (1.8-2.4); PHOSPHORUS 4.6 mg/dL (2.5-4.9); POTASSIUM 3.9 mmol/L (3.5-5.1); TOTAL BILIRUBIN 0.6 mg/dL (<0.1-1.0); TOTAL PROTEIN 6.1 g/dL (6.4-8.2)
--- NOTE | 2018-10-06 14:28 | NUR ---
WHILE TITRATING IV MEDI
[2018-10-07] VITALS (74 sets, daily range): BP systolic 126–220; BP diastolic 76–120
--- NOTE | 2018-10-07 04:16 | NUR ---
PATIENT ON SEDATION, INTERMITTENTLY FOLLOWS COMMANDS. SINUS RHYTHM TO SINUS BRADYCARDIA ON REPORTING PROCESS CONSULTANT. ON VENTILATOR 40%FIO2. OG TUBE IN PLACE. WALSH PATENT WITH ADEQUATE OUTPUT. SOFT WRIST RESTRAINTS IN PLACE. TURNED Q2H. BLOOD SUGARS MONITORED. NO SIGNS OF ACUTE DISTRESS NOTED AT THIS TIME. WILL CONTINUE TO MONITOR.
[2018-10-07 05:51] LABS: CALCIUM 8.7 mg/dL (8.5-10.1); CREATININE 0.8 mg/dL (0.7-1.3); MAGNESIUM 2.2 mg/dL (1.8-2.4); PHOSPHORUS 3.8 mg/dL (2.5-4.9); POTASSIUM 3.6 mmol/L (3.5-5.1)
[2018-10-07 08:22] LABS: ALBUMIN 2.3 g/dL (3.4-5.0); DIRECT BILIRUBIN 0.2 mg/dL (<0.1-0.3); TOTAL BILIRUBIN 0.5 mg/dL (<0.1-1.0); TOTAL PROTEIN 6.9 g/dL (6.4-8.2)
--- NOTE | 2018-10-07 16:46 | NUR ---
FOLLOWING FOR DC PLANNING. CLINICAL INFO REVIEWED. PT REMAIINS ON VENT AND DIFFICULT TO SEDATE. NO W/E DC PLANS
--- NOTE | 2018-10-07 18:44 | NUR ---
END OF SHIFT NOTE. PT VERY AGITATED THIS AM, ON SCHEDULED ATIVAN NOW IN ADDITOIN TO PROPOFOL, WEANING DOWN, FENTANYL, VERSED AND PRECEDEX. VSS. NO WEANING TODAY. STOOL X 2 HOLDING REGLAN BECAUSE IT IS LIQUID. TPN INFUSING.
[2018-10-08] VITALS (54 sets, daily range): BP systolic 133–170; BP diastolic 86–105
--- NOTE | 2018-10-08 04:23 | NUR ---
ASSUMED CARE OF PT. AT 1900. NO NEW CHANGES. VSS. MEDICATION TITRATION CHARTED. ASSESSMENTS AND VITAL SIGNS CHARTED. SPOKE WITH FAMILY LAST NIGHT, THEY WOULD LIKE TO SPEAK WITH DOCTOR ABOUT PLAN OF CARE WITH THE INTUBATION TUBE. TODAY IS VENT . PT. CALM FOR MOST OF NIGHT, OCCASIONAL AGITATION WHEN SUCTIONING. PLAN OF CARE IS TO CONTINUE TO KEEP SEDATED FOR PT. AND NURSE SAFETY. WILL CONTINUE TO MONITOR.
[2018-10-08 05:52] LABS: CALCIUM 8.5 mg/dL (8.5-10.1); CREATININE 0.8 mg/dL (0.7-1.3); POTASSIUM 3.7 mmol/L (3.5-5.1)
[2018-10-08 06:14] LABS: PHOSPHORUS 3.7 mg/dL (2.6-4.7)
--- NOTE | 2018-10-08 17:35 | NUR ---
PROPOFOL WEANED OFF THIS AM. SLOWLY WEANING VERSED. DR SOSA HERE AND DISCUSSED PLAN OF CARE WITH PT AND HIS FAMILY. PT PLACED IN CPAP TRIAL X1 HR. WEANING PARAMETERS DONE AND ORDER TO EXTUBATE BY DR SOSA. DR SOSA AT BEDSIDE AND PT EXTUBATED AT 1027. CONTINUED TO SLOWLY WEAN OFF VERSED THIS AM AND IT WAS STOPPED AT 1330. PT CONTINUES TO RECIEVE ZYPREXA AND ATIVAN AND REMAINS ON PRECEDEX AND FENT GTT'S. HE IS VERY IMPULSIVE AND CONFUSED AND RESTRAINTS REMAIN IN PLACE. COUGHING UP LARGE AMOUNTS OF CHENG/PINK SPUTUM THIS AFTERNOON AND SPITTING IT. BP ELEVATED. PRN HYDRALAZINE GIVEN. PT HAVING LARGE AMOUNT OF CLEAR/LIGHT YELLOW/DILUTE URINE THIS AFTERNOON. APPROX 1000ML/HR. DR PEARSON PAGED TO UPDATE HIM. PT'S FAMILY AT BEDSIDE AND UPDATED THROUGHOUT THE DAY. WILL CONTINUE TO MONITOR PT. PROGRESSING TOWARDS GOALS PER PLAN OF CARE.
--- NOTE | 2018-10-08 19:38 | NUR ---
SPOKE WITH DR PEARSON AT 1830 AND UPDATED OF PT STATUS AND URINE OUTPUT OF APPROX 1000ML/HR FOR LAST 4 HOURS. NO NEW ORDERS RECIEVED.
[2018-10-09] VITALS (29 sets, daily range): BP systolic 121–164; BP diastolic 72–106
--- NOTE | 2018-10-09 04:55 | NUR ---
ASSUMED CARE OF PT. AT 1900. PT. IS EXTREMELY AGITATED HAM WITH ALL GTT RESUMED. I HAVE BEEN KICKED THREE TIMES AND CUSSED OUT MULTIPLE TIMES. VERSED GTT RESUMED WHICH HELPED SOME. PT. DOES FOLLOW SOME COMMANDS WHEN HE FEELS LIKE IT, CONTINUES TO BE CONFUSED AND PT. CONTINUES TO TRY AND SPIT ON THE NURSING STAFF. PT. CONTINUES TO MAINTAIN OXYGENATION WITH NASAL CANULA. VSS. PT. PROGRESSING TOWARDS GOALS. WILL CONTINUE TO MONITOR
[2018-10-09 05:52] LABS: ABSOLUTE NEUTROPHILS 6.3 thou/uL (1.4-8.2); BASOPHILS 0.8 % (0.0-2.0); EOSINOPHILS 1.2 % (0.0-3.0); HEMOGLOBIN 9.2 gm/dL (14.0-18.0); LYMPHOCYTES 16.2 % (24.0-44.0); MCH 31.1 pg (26.0-34.0); MCHC 34.1 g/dL (28.0-37.0); MCV 91.4 fL (80.0-100.0); MONOCYTES 6.1 % (1.0-8.0); PLATELET COUNT 434 thou/uL (150-400); POLYS 75.7 % (36.0-66.0); RBC 2.95 mil/uL (4.50-6.00); RDW 13.4 % (10.5-14.5); WBC 8.4 thou/uL (4.0-11.0)
[2018-10-09 06:05] LABS: PHOSPHORUS 4.4 mg/dL (2.5-4.9)
[2018-10-09 06:08] LABS: ALBUMIN 2.6 g/dL (3.4-5.0); CALCIUM 8.8 mg/dL (8.5-10.1); CREATININE 0.8 mg/dL (0.7-1.3); TOTAL BILIRUBIN 0.7 mg/dL (<0.1-1.0); TOTAL PROTEIN 6.5 g/dL (6.4-8.2)
[2018-10-10] VITALS (23 sets, daily range): BP systolic 121–191; BP diastolic 77–104
--- NOTE | 2018-10-10 02:00 | NUR ---
PT SUDDENLY BECAME EXTREMELY RESTLESS. TRYING TO GET OUT OF BED AND CURSING. RESTRAINTS ORDERED. ATIVAN GIVEN. PRECEDEX GTT INCRESED TO 1.4. WILL CONT TO MONITOR.
--- NOTE | 2018-10-10 06:00 | NUR ---
FAMILY CALLED IN AT BEDSIDE. PT IS MUCH CALMER WITH THEM HERE. REMAINS RESTRAINED. FENTANYL GTT ADDED AND PRECEDEX CONT AT 1.4 ATIVAN PRN. 3200 CC UO THIS SHIFT. SINUS RHYTHM VSS, WILL CONT TO MONITOR.
[2018-10-10 06:27] LABS: HEMATOCRIT 27.7 % (42.0-52.0); HEMOGLOBIN 9.2 gm/dL (14.0-18.0); MCH 30.8 pg (26.0-34.0); MCHC 33.2 g/dL (28.0-37.0); MCV 92.8 fL (80.0-100.0); RBC 2.98 mil/uL (4.50-6.00); RDW 13.8 % (10.5-14.5)
[2018-10-10 06:45] LABS: CALCIUM 9.1 mg/dL (8.5-10.1); CREATININE 0.9 mg/dL (0.7-1.3); POTASSIUM 3.9 mmol/L (3.5-5.1)
--- NOTE | 2018-10-10 18:57 | NUR ---
ASSUMED CARE @ 0700 10/10/18, PT ASSESSMENTS AND VSS COMPLETE PER ICU PROTOCOL. PT ALERT AND ORIENTED X2-3, PT STILL PRESENTS VERY RESTLESS, BUT ABLE TO TITRATE OFF FENTANYL COMPLETELY, PT STILL HAS ATIVAN PRN AND SCHEDULED GIVEN WHEN AGITATED. PT SR ON THE MONITOR, BP ELEVATED WHEN AGITATED. PT ON 2L OF 02 SATS IN THE HIGH 90'S. PT ON A CLEAR LIQUID DIET, TPN STILL RUNNING AT ORDERED DOSE. WALSH IN PLACE, GOP NOTED. PLAN OF CARE- CONT TO MONITOR.
[2018-10-11] VITALS (24 sets, daily range): BP systolic 103–166; BP diastolic 53–138
--- NOTE | 2018-10-11 06:00 | NUR ---
PT HAS HAD PERIODS OF RESTLESSNESS AND AGITATION TONIGHT. REMAINS ON PRECEDEX 1.4 MCG AND SCHEDULED ATIVAN 2 MG Q 2 HRS PLUS PRN ATIVAN. 3500 CC UO THIS SHIFT. BATHED. REPOSITIONED. VSS REMAINS IN SR. WILL CONT TO MONOTOR.
--- NOTE | 2018-10-11 12:16 | NUR ---
SW reviewed chart and spoke with nursing and attending physician. Pt is extubated. Pt remains in restraints. Psych following. Meds to be changed to PO. Pt lives at home with his brother. Pt does not have health insurance. [employer] following. [facility] is following to assist as needed with discharge planning.
--- NOTE | 2018-10-11 19:15 | NUR ---
Pt on Precedex infusing throughout the shift at 1.4 mcg/kg/hr. Pt also receiving scheduled doses of Ativan q 2 hours. Pt has required supplemental doses of Ativan and oral Zyprexa (see emar). Increasing confusion/agitation toward the end of the shift. Pt was advanced to full liquid diet at lunch and low fat diet for dinner. No apparent difficulties with swallowing. Pt did report feeling nauseated in late afternoon. No emesis. Pt took only couple bites of food at dinner. Pt had a large loose stool. Reglan held this shift. Large urine output. NSR. O2 at 2 liters per nasal cannula. Increased respiratory rate for a few hours after getting out of bed and working with PT. Maintained adequate O2 saturation. Brothers at bedside most of the day and left room at end of visiting hours. Report given to RN assuming care.
[2018-10-12] VITALS (26 sets, daily range): BP systolic 94–180; BP diastolic 51–114
[2018-10-12 05:55] LABS: HEMATOCRIT 33.4 % (42.0-52.0); MCH 30.3 pg (26.0-34.0); MCHC 33.5 g/dL (28.0-37.0); MCV 90.6 fL (80.0-100.0); RBC 3.68 mil/uL (4.50-6.00); RDW 13.5 % (10.5-14.5); WBC 7.6 thou/uL (4.0-11.0)
[2018-10-12 06:00] LABS: HEMOGLOBIN 11.2 gm/dL (14.0-18.0)
[2018-10-12 06:12] LABS: CREATININE 0.9 mg/dL (0.7-1.3); POTASSIUM 4.3 mmol/L (3.5-5.1)
--- NOTE | 2018-10-12 07:21 | NUR ---
PATIENT ALERT TO SELF AND SITUATION. REORIENTED TO TIME. ON 2L NASAL CANNULA. SINUS RHYTHM TO SINUS TACHYCARDIA ON MONITOR. NOT TOLERATING DIET, MAY NEED SUPPLEMENT. WALSH PATENT AND DRAINING. RIGHT UPPER ARM PICC LINE INTACT. BLOOD SUGAR MONITORED. NO SIGNIFICANT EVENTS OVER NIGHT. PATIENT FOLLOWED COMMANDS THROUGHOUT THE NIGHT AND WAS PLEASANT TOWARDS STAFF. PRECIDEX OFF FROM [id number]. RESTARTED AT 0700 DUE TO SINUS TACHYCARDIA AND SYMPTOMATIC NAUSEA/VOMITING. NO SIGNS OF ACUTE DISTRESS NOTED AT THIS TIME. WILL CONTINUE TO MONITOR.
[2018-10-12 09:40] LABS: BE(vivo) -2.4 mmol/L (-2 to +3); HCO3 20.4 mmol/L (22.0-26.0); PCO2 29.8 mmHg (35.0-45.0); PO2 82.9 mmHg (80.0-100.0); pH 7.454 (7.360-7.450); sO2 96.8 % (92.0-98.0)
--- NOTE | 2018-10-12 16:29 | NUR ---
ASSUMED CARE @ 0700 10/12/18, PT ASSESSEMENTS AND VSS COMPLETE PER ICU PROTOCOL PT ALERT AND ORIENTED TO SELF, PT APPEARS CONFUSED MOST TIMES, PRECEDEX STILL RUNNING BUT ACTIVELY TITRATING DOWN PT CAN TOLERATE. PT HAD AN EVENT OF BEING IN ST 140'S-150'S AND RR IN THE 40'S-50'S, THIS EVENT HAPPENED AFTER PT HAD AN EPISODE OF EMESIS, PT WAS GIVEN ZOFRAN , DR MARADIAGA WAS PAGED, CHEST XRAY, KUB AND ABG'S WERE ORDERED. THESE RESULTS WERE COMMUNICATED BACK TO DR MARADIAGA AND RECOMMENDATIONS WERE GIVEN. PT ON 3L, SATS IN THE MID 90'S, NO SIGNS OF SOA. DR HANDLEY WAS ALSO INFORMED ABOUT THE EMESIS EVENT, PT MADE NPO AT THAT TIME AND LIPASE WAS ORDERED. AFTER DR HANDLEY MADE HER ROUNDS AND ASSESSED THE PT, SHE SWITCHED HIS DIET BACK TO A SOFT-FIBER RESTRICTED DIET. WALSH IN PLACE, GOP NOTED. FALL PRECAUTIONS IN PLACE. PLAN OF CARE- CONT TO MONITOR.
--- NOTE | 2018-10-12 22:34 | NUR ---
ASSUMED CARE AT 1900 ON 10/12. UPON ARRIVAL PATIENT WAS COMBATIVE AND IMPULSIVE TRYING TO GET OUT OF HIS RESETRAINTS AND GET OUT OF BED, PRECEDEX GTT WAS RUNNING AT 0.8 MCG/KG/HR. LORAZEPAM SCHEDULED Q2H WAS GIVEN, PT STILL IMPULSIVE AND COMBATIVE. PRECEDEX GTT WAS TITRATED UP TO 1.4 MCG/KG/HR ACCORDING TO TITRATION ORDERS. MUSIC CATALOGUER NOTIFIED AND 5 MG IM HOLDOL ORDER OBTAINED AND GIVEN, SECURITY IN THE ROOM. PT STILL NOT COOPERATING, ATTEMPTING TO BREAK THE BEDRAILS. DR. MOSLEY (PSYCH) NOTIFIED. 50 MG IM THORASINE OBTAINED AND GIVEN. PT NOW RESTING COMFORTABLY IN BED.
[2018-10-13] VITALS (18 sets, daily range): BP systolic 94–130; BP diastolic 42–82
[2018-10-13 05:25] LABS: HEMATOCRIT 30.3 % (42.0-52.0); HEMOGLOBIN 10.3 gm/dL (14.0-18.0); MCH 30.8 pg (26.0-34.0); MCHC 33.9 g/dL (28.0-37.0); MCV 90.9 fL (80.0-100.0); RBC 3.33 mil/uL (4.50-6.00); RDW 13.5 % (10.5-14.5); WBC 6.8 thou/uL (4.0-11.0)
[2018-10-13 05:38] LABS: CALCIUM 9.1 mg/dL (8.5-10.1); PHOSPHORUS 4.5 mg/dL (2.5-4.9); POTASSIUM 4.2 mmol/L (3.5-5.1); TOTAL BILIRUBIN 0.5 mg/dL (<0.1-1.0); TOTAL PROTEIN 7.8 g/dL (6.4-8.2)
--- NOTE | 2018-10-13 15:58 | NUR ---
0800 PT VERBALLY AGRESSIVE, ALERT TO SELF, PO THORAZINE GIVEN PER ORDERS, ATIVAN GIVEN Q2H SCHEDULED. VITAL SIGNS STABLE. WILL CONTINUE TO MONITOR. 0830 BROTHER BRANDI AT BEDSIDE. UPDATED ON STATUS AND PLAN OF CARE. 1000 PT RESTING, CALM COOPERATIVE, REQUESTING WARM BLANKET, AND EXPRESSED GRATITUDE FOR BLANKET. ATTEMPTING PRECEDEX WEANING-SEE CHARTING. 1500 PT COOPERATIVE AND CALM, PT AND RN ABLE TO LOOSEN RESTRAINTS AND ASSIST PT TO SIDE OF BED. TOLERATED WELL. SEE PT CHARTING. RESTRAINTS REAPPLIED, TO PROTECT LINES AND EQUIPEMENT. VITAL SIGNS STABLE. WILL CONTINUE TO MONITOR.
--- NOTE | 2018-10-13 15:58 | NUR ---
patient sedated, on upper restraints. Brother visits patient. Patient worked with therapy today. May likely need rehab prior to home. patient with no insurance. Cont to follow for dc planning.
[2018-10-14] VITALS (20 sets, daily range): BP systolic 55–172; BP diastolic 37–99
[2018-10-14 05:37] LABS: HEMATOCRIT 33.1 % (42.0-52.0); MCH 29.9 pg (26.0-34.0); MCHC 33.3 g/dL (28.0-37.0); RBC 3.68 mil/uL (4.50-6.00); RDW 13.7 % (10.5-14.5); WBC 10.8 thou/uL (4.0-11.0)
[2018-10-14 05:50] LABS: CALCIUM 9.9 mg/dL (8.5-10.1); CREATININE 1.1 mg/dL (0.7-1.3); POTASSIUM 4.3 mmol/L (3.5-5.1)
[2018-10-14 06:20] LABS: ALBUMIN 3.2 g/dL (3.4-5.0); DIRECT BILIRUBIN 0.2 mg/dL (<0.1-0.3); TOTAL BILIRUBIN 0.6 mg/dL (<0.1-1.0); TOTAL PROTEIN 8.2 g/dL (6.4-8.2)
--- NOTE | 2018-10-14 07:11 | NUR ---
END OF SHIFT NOTE. ASSUMED CARE AT 10/13 AT APRROX 1900. UPON ARRIVAL PATIENT WAS RESTING COMFORTABLY AND PATIENT WAS ASSESSED AND VITALS WERE TAKEN VIA ICU PROTOCOL. PER DR. RAMAN'S NOTE PATIENT IS TO CONTINUE TO BE TREATED WITH Q2H SCHEDULED ATIVAN WELL PRN ATIVAN AND ZYPREXA. PATIENT WAS CALM AND COOPERATIVE. PT DID GET INCREASINGLY AGGITATED IN THE MORNING, PULLING OFF CARDIAC LEADS AND CONT PULSE OX. PATIENT IS ALERT AND ORIENTED ONLY TO SELF AND THE YEAR. IN AM PTS BLOOD GLUCOSE WAS 79, PATIENT WAS ENCOURGAED TO DRINK APPLE JUICE/ENSURE.
--- NOTE | 2018-10-14 14:39 | NUR ---
ON-GOING ASSESSMENT: PT IS SLOWLY PROGRESSING TOWARDS DISCHARGE GOALS. CM SPOKE WITH PATIENTS BROTHER BRANDI WHO STATES PLAN IS STILL FOR PATIENT TO RETURN HOME TO LIVE WITH HIM AT DISCHARGE. HE REPORTS THEY HAVE A WALKER AT HOME FOR PATIENT TO USE IF NEEDED. PT IS SLOWLY PROGRESSING WITH THERAPY. PTS BROTHER REPORTED THAT HE RECEIVED A CARD IN THE MAIL STATING PATIENT HAS [place] MEDICAID (REPORTS PATIENT MOVED HERE FROM [place] IN APR) AND IT WAS ACTIVE 08/29/18 MEDICAID#[id number]. CM NOTIFIED DW IN PRE-CERT WITH INFORMATION. CM WILL CONTINUE TO FOLLOW TO ASSIST NEEDED.
--- NOTE | 2018-10-14 15:48 | NUR ---
0800 PT AWAKE, CALM AND COOPERATIVE. ATIVAN GIVEN SCHEDULED. WILL CONTINUE TO WEAN OFF PRECEDEX. 1000 BILATERAL UPPER RESTRAINTS REMOVED, PT REMAINS CALM AND COOPERATIVE, JOKING WITH NURSE AT TIMES. ASSISTED PT TO SIDE OF BED. ASSIST X1 TO CHAIR, PT STILL WEAK AND STATED THAT HE WAS LIGHTHEADED. PRECEDEX OFF, HR ELEVATING, OTHER VITALS STABLE. SEE CHARTING. 1200 PT REMAINS IN PLEASANT MOOD, IN CHAIR WITH CHAIR ALARM, PRECEDEX AND RESTRAINTS REMAIN OFF. 1400 HR 140-150 STEADY, ORDERS PER DR. GAYLE TO GIVE PO METOPROLOL 12.5MG BID. 1430 DR. RAMAN AT BEDSIDE, REPORTED HR AND CURRENT MOOD, ORDERS TO GIVE PO DOSES OF ATIVAN FOR INCREASED HR BETWEEN IVP ATIVAN. SHE SUSPECTS THAT IT IS ETOH WITHDRAW SYMPTOMS. WILL CONTINUE TO MONITOR.
--- NOTE | 2018-10-14 16:43 | NUR ---
1645 PT IMPULSIVE AT TIMES, WILL NOT USE CALL LIGHT, HAVING VISUAL DISTURBANCES, STATING THAT HE SEES SNAKES AND RATS ON THE COUNTERTOPS, HAVING AUDIAL DISTURBANCES, STATES HE IS HEARING BLUE ARIEL. CIWA Q4H ON CHART. WILL CONTINUE TO MONITOR.
--- NOTE | 2018-10-14 18:26 | NUR ---
PT BROTHER BROUGHT IN COPY OF [place] MED[place] CARD-ON FRONT OF CHART.
[2018-10-15] VITALS (22 sets, daily range): BP systolic 102–183; BP diastolic 63–119
[2018-10-15 05:56] LABS: ALBUMIN 3.5 g/dL (3.4-5.0); DIRECT BILIRUBIN 0.2 mg/dL (<0.1-0.3); TOTAL BILIRUBIN 0.6 mg/dL (<0.1-1.0); TOTAL PROTEIN 8.9 g/dL (6.4-8.2)
--- NOTE | 2018-10-15 16:32 | NUR ---
PT CONTINUES TO BE AGRESSIVE, REQUIRING SECURITY TO BE CALLED TO ROOM MULTIPLE TIMES - ATTEMPTING TO LET PT GET UP TO THE COMMODE LEADS TO PHYSICAL ATTEMPTS TO PUSH PAST NURSE AND EXIT THE ROOM PLACING HANDS ON NURSE AND TWISTING NURSES ARM ATTEMPTING TO LOOM OPERATOR APPRENTICE AND THROW WALKER - WHILE ON COMMODE PT UNABLE TO COMPLETE HYGEINE AND ATTEMPTS TO HELP RESULT IN MORE AGITATION AND STOOL BEING DISPLACED - SITTER REMAINS A REQUIREMENT - CONTINUE TO UTILIZE SCHEDULED AND PRN MEDICATIONS
--- NOTE | 2018-10-15 21:39 | NUR ---
1944 - Pt aggitated, verbally abusive to sitter, attempting OOB and pushing sitter away. Security called. Able to calm pt prior to secuity's arrival and get him back in bed. Meds given as ordered. Family currently at bedside and pt visiting and watching TV appropriately.
--- NOTE | 2018-10-15 22:29 | NUR ---
Security called again at 2200. Pt continuously attempting OOB, thinks he is home and wants to go take shower, then talks about playing cards, then talks about just getting out. Not cooperative with staff, keeps attempting to push sitter away when she tries to assist him to stand or get back to bed. Responding better to air liaison and special staff, but still non-cooperative.
--- NOTE | 2018-10-15 22:51 | NUR ---
IVP Haldol given per orders nurse practioner data examination clerk. Pt has attempted to pull PICC line, keeps taking apart monitor wires, attempted to hit sitter when she tried to reconnect heart monitor. Will restart Precedx drip to maintain staff and patient safety.
[2018-10-16] VITALS (23 sets, daily range): BP systolic 85–142; BP diastolic 49–86
--- NOTE | 2018-10-16 06:20 | NUR ---
END OF SHIFT SUMMARY: Precedex has been off since 129. Pt has been sleeping since midnight. Ativan given as scheduled, but 0600 dose held due to low BP. Pt has been sinus rhythm, sinus tachycardia, rates up to 130 early in shift but have been 80-115 since midnight. O2 sat 92-96% on room air, respiations 22-40. Sitter remains at bedside.
--- NOTE | 2018-10-16 11:02 | EKG ---
[address] [place] [address] ELECTROCARDIOGRAM REPORT Name: MICKI HANSEN Room #: 242-P ADM IN M.R.#: [id number] Admission: 09/22/18 Attend Phys: Taylor Rivera Discharge: Date of : 76 Report #: [id number] THIS REPORT FOR: //name// [facility] Test Date: 2018-10-16 Test Time: 09:48:16 Pat Name: MICKI HANSEN Department: Room: 242 P Gender: M Automobile Brakes Bonder: HESHAM : 1980 Requested By: Mendy Browning Order Number: [id number] MD: Domingo Melara Measurements Intervals [place] Rate: 117 P: 70 [place]: 126 QRS: 64 QRSD: 89 T: 0 QT: 315 QTc: 440 Interpretive Statements Sinus tachycardia Borderline repolarization abnormality Compared to ECG 04/27/2016 16:02:23 heart rate has increased Electronically Signed On 10-16-2018 11:02:31 CDT by Domingo Melara [email or web address] <ELECTRONICALLY SIGNED> By: Domingo Melara MD, [facility] 10/16/18 1102 [id number] [id number] Domingo Melara MD, FACC /EPI
--- NOTE | 2018-10-16 19:12 | NUR ---
PATIENT REMAINS ALERT TO SELF AND SOMETIMES PLACE, STILL HAVING LOTS OF CONFUSION THROUGHOUT THE DAY. LESS AGITATION THIS AFTERNOON, PATIENT WAS COOPERATIVE WITH CARES TODAY. 1:[address] RAMAN ON PATIENT'S STATUS, ORDERS TO CONTINUE TO GIVE THE ATIVAN Q2H SCHEDULED AND ALSO NPRN ATIVAN IF NEEDED. IF PATIENT HR OR BP IS ELEVATED GIVE MORE ATIVAN, DR RAMAN STATED THAT SHE EXPECTS TO NEED TO GIVE HIM UPWORDS OF 40MG PER DAY. POOR APPETITE TODAY, STRONGLY ENCOURAGED PATIENT TO INCREASE FLUID INTAKE. NO FURTHER CONCERNS AT THIS TIME. WILL CONTINUE TO MONITOR AND CARE PER PLAN OF CARE.
[2018-10-17] VITALS (24 sets, daily range): BP systolic 99–163; BP diastolic 51–93
--- NOTE | 2018-10-17 04:00 | NUR ---
PT ATTEMPTED TO GET OUT OF BED. JUMPED OVER SIDE RAIL. BED ALARM ON SITTER AT BEDSIDE. EXTREMELY IMPULSIVE AT TIMES.
--- NOTE | 2018-10-17 06:00 | NUR ---
PT RESTING QUIETLY AT PRESENT. CONT TO BE VERY IMPULSIVE AT TIMES. CONT WITH A 1:1 SITTER. JACKSON PICC SALINE LOCKED. LUNGS CLEAR. VOIDING DARK AMVER URINE. BATHED EARLIER. SINUS RHYTHM TO SINUS TACH. WILL CONBT TO MONITOR
[2018-10-17 07:06] LABS: HEMATOCRIT 31.4 % (42.0-52.0); HEMOGLOBIN 10.5 gm/dL (14.0-18.0); MCHC 33.5 g/dL (28.0-37.0); MCV 89.6 fL (80.0-100.0); RBC 3.51 mil/uL (4.50-6.00); RDW 14.4 % (10.5-14.5); WBC 7.7 thou/uL (4.0-11.0)
[2018-10-17 07:11] LABS: CALCIUM 9.5 mg/dL (8.5-10.1); CREATININE 1.1 mg/dL (0.7-1.3); POTASSIUM 3.8 mmol/L (3.5-5.1)
--- NOTE | 2018-10-17 18:47 | NUR ---
ASSUMED CARE @ 0700 10/17/18, PT ASSESSMENTS AND VSS COMPLETE PER ICU PROTOCOL. PT ABLE TO FOLLOW COMMANDS AT THIS TIME, PT ABLE TO ANSWER SOME ORIENTATION QUESTIONS BUT HE HAS MOMENTS OF IN-CONHERENT SENTENCES AND CONFUSION, PT STILL ON THE Q2H ATIVAN, PER DR RAMAN, PT SHOULD BE GIVEN THESE DOSES SCHEDULED. PT ST ON THE MONITOR, PT AFEBRILE LAST ASSESSMENT, TMAX WAS 99.0. PT ON RA, SATS HIGH 90'S, PT REFUSING TO WEAR HIS O2 SAT MONITOR, RN HAS BEEN SPOT CHECKING HIM Q2H. PT ABLE TO TOLERATE DIET BUT HAS LOW APETITE, ENSURE HAS BEEN ADDED TO HELP NUTRITION. PT ABLE TO USE URINAL. SITTER IN PLACE FOR PT PROTECTION. PT ABLE TO SIT IN CHAIR FOR 2 HOURS DURING THIS SHIFT. PLAN OF CARE- FALL PRECAUTIONS IN PLACE.
[2018-10-18] VITALS (15 sets, daily range): BP systolic 97–125; BP diastolic 55–81
[2018-10-18 05:30] LABS: ALBUMIN 3.1 g/dL (3.4-5.0); CALCIUM 9.1 mg/dL (8.5-10.1); CREATININE 1.1 mg/dL (0.7-1.3); POTASSIUM 3.9 mmol/L (3.5-5.1); TOTAL BILIRUBIN 0.4 mg/dL (<0.1-1.0); TOTAL PROTEIN 7.9 g/dL (6.4-8.2)
--- NOTE | 2018-10-18 05:46 | NUR ---
RECEIVED REPORT AND ASSUMED PATIENT CARE AT 1900. PATIENT LYING IN BED WATCHING TV WITH 1:1 SITTER AT BEDSIDE. PATIENT IS ORIENTED TO SELF ONLY AND HAD MANY HALLUCINATIONS. SCHEDULED ATIVAN GIVEN ORDERED Q2H. PATIENT IS NOTED TO BE ST ON THE MONITOR AND ON ROOM AIR. PATIENT MOSTLY REMAINED CALM DURING THIS SHIFT AND WHEN HE BEGAN TO GET AGITATED, THIS RN DETERRED HIM BY WALKING HIM AROUND THE UNIT. PATIENT WAS MUCH CALMER UPON RETURNING TO THE ROOM AND WENT BACK TO SLEEP. VS REMAINED STABLE DURING THIS SHIFT AND NO ACUTE EVENTS OCCURRED. HOURLY ROUNDING COMPLETED AND ASSESSMENTS CHARTED PER ICU POLICY.
--- NOTE | 2018-10-18 11:07 | NUR ---
ASSUMED CARE 0700 10/18/18, PT ASSESSMENTS AND VSS COMPLETE PER ICU PROTOCOL. PT ABLE TO FOLLOW COMMANDS BUT VERY CONFUSED AND IMPULSIVE. PT ST ON THE MONITOR, PT DID HAVE A TEMP OF 101.6, TYLENOL WAS GIVEN TEMP DOWN TO 98.3. PT ON RA, SATS IN HIGH 90'S, BRONCH SPECIMEN DID COME BACK POSITIVE FOR SHANNON ALBICANS, DR SOSA AWARE. NO ORDERS RECIEVED. REPORT GIVEN TO LAURA CARR, HANDOFF 1100.
--- NOTE | 2018-10-18 12:42 | NUR ---
Assumed care at 1100, patient noted to be orientated to person, place and month. Patient impulsive at times, pulling off socks, up to the chair and then back to bed within a few minutes. Olanzapexa and Ativan given and patient is resting quietly at present.
--- NOTE | 2018-10-18 15:37 | NUR ---
ON-GOING ASSESSMENT: PT CONTINUES TO GET ATIVAN SCHEDULED Q2HRS. PT STILL IMPULSIVE AT TIMES AND HAD SITTER THIS AM. PT HAD A FEVER THIS AM AND PRN MEDICATION AND WAS BROUGHT BACK DOWN. CM WILL CONTINUE TO FOLLOW TO ASSIST NEEDED.
--- NOTE | 2018-10-18 18:42 | NUR ---
PATIENT SLEEPING, 1800 DOSE OF ATIVAN HELD PATIENT IS TO SEDATED TO GIVE PO TYLENOL FOR FEVER OF 100.6 AX. AROUSES BUT THEN DRIFTS RIGHT OFF TO SLEEP. BROTHER IN TO VISIT THIS EVENING AND AWARE OF PATIENT'S CONDITION.
[2018-10-19] VITALS (17 sets, daily range): BP systolic 66–123; BP diastolic 29–75
--- NOTE | 2018-10-19 06:30 | NUR ---
END OF SHIFT NOTE. ASSUMED CARE FOR PATIENT AT APPROX 1900 ON 10/18. UPON ARRIVAL PATIENT WAS ASSESSED AND VITALS TAKEN PER ICU PROTOCOL. PATIENT WAS A&0 X4 AND DROWSY. ATIVAN CONTINUES TO BE GIVEN Q2H PER DR. RAMAN. PATIENT HAD A BRIEF EPISODE OF IMPULSION AND HALLUCINATIONS IN THE MIDDLE OF THE NIGHT. 1 DOSE OF PO PRN ZYPREXA WAS GIVEN. PT REMAINS ASLEEP FOR THE MAJORITY OF THE NIGHT. 1:1 SITTER WITH PATIENT. NO SIGNIFICANT EVENTS OVERNIGHT.
--- NOTE | 2018-10-19 11:45 | NUR ---
ASSUMED CARE THIS AM, SLEEPING BUT AWAKES TO VOICE. FOLLOWS COMMANDS AND IS ORIENTED X3. PLEASANT. NO PAIN OR NAUSEA REPORTED. ST ON MONITOR. BP WNL. GOAL IS TO GET PATIENT OUT OF ICU WHEN TOLERATED LESS ATIVAN, POSSIBLY BEGIN TAPERING 2MG DOSE TODAY. ORACLE DATABASE MANAGER AT BEDSIDE.
--- NOTE | 2018-10-19 15:41 | NUR ---
TRANSPORTED TO SHOWER IN ICU GUEST ROOM VIA WHEELCHAIR. SHOWERED AND SHAMPOOED. JACKSON TLC SECURE UNDER PLASTIC WRAP. ORDERS RECIEVED TOREMOVE FROM TELE DURING SHOWER. TOLERATED WELL. DRESSING TO JACKSON PICC CHANGED. NO OUTBURSTS TODAY, VERY PLEASANT AND COOPERATIVE
[2018-10-20] VITALS (11 sets, daily range): BP systolic 99–134; BP diastolic 59–87
--- NOTE | 2018-10-20 07:11 | NUR ---
END OF SHIFT NOTE. ASSUMED CARE OF PATIENT AT APPROX 1900 ON 10/19. UPON ARRIVAL PATIENT ASSESSED AND VITALS TAKEN PER ICU PROTOCOL, PATIENT A&O X4, ON ROOM AIR. PT CONVERSATIONAL AND VERY PLEASANT. AT TIMES STILL IMPULSIVE. NO SIGNIFICANT EVENTS OVERNIGHT. ATIVAN ORDER REMAINS THE SAME, 2MG Q2H. PATIENT'S APPETITE AND STRENGTH INCREASING.
--- NOTE | 2018-10-20 08:48 | NUR ---
PATIENT ALERT AND ORIENTED, SITTER AT THE BEDSIDE. VITALS STABLE-SOMETIMES TACHYCARDIC. UP TO BSC WITH ASSISTANCE. TOLERATING DIET W/O NAUSEA. CONTINUES TO GET ATIVAN SCHEDULED PER DR. RAMAN'S ORDER. WILL CONTINUE WITH CURRENT POC.
--- NOTE | 2018-10-20 10:43 | HC ---
Formerly [facility] [place] [address] CONSULTATION Name: MICKI HANSEN Room #: 242-P [facility] IN ..#: [id number] Admission: 09/22/18 Attend Phys: Taylor Rivera Discharge: Date of : 76 Report #: [id number] THIS REPORT FOR: //name// CC: KELLY physician/PCP Taylor Rivera DATE OF SERVICE: 10/19/2018 HISTORY OF PRESENT ILLNESS: This is a 38-year-old male patient who was seen by me to address the question of Keppra in this patient. I reviewed the records, but I am not totally certain about the history. As I understand, he drinks alcohol in heavy amount for a long time. He has never tried to quit in the past. He was in severe alcohol withdrawal and he had a seizure at that time. He was started on Keppra and he has been on Keppra since then. In fact, he is also on Depakote at the moment, which I suspect, is because of his agitation. I do not think he had any imaging studies of the brain. He is becoming somewhat better, but he is still 1:1. REVIEW OF SYSTEMS: Indicate that he has drunk alcohol for a long period of time. He was intubated during this admission. He has also used other drugs like marijuana and cocaine. He has a history of pancreatitis, but he indicated he never had seizure before. This was his relevant 14-point review of systems. PAST MEDICAL HISTORY: Negative for seizure. FAMILY HISTORY: Negative for any congenital epilepsies. SOCIAL HISTORY: He has a history of alcohol abuse. PHYSICAL EXAMINATION: Indicate he is alert. He knew what month it is. He could not name the president. He knew he was in [facility]. Cranial nerve examination 2-12 looks unremarkable. Neuromuscular examinations appear mostly unremarkable. He does not appear to be in withdrawal now. He could not cooperate with the fundus examination. He is reasonably built individual who does not have any dysmorphic features of eyes, ears, and face. His cardiac examination is unremarkable. Blood pressure is 115/64, respiration is 11, pulse is 110, temperature is 98.3. LABORATORY DATA: His last white count was 7.17. His sodium is 134. He did have an EEG, which was unremarkable. He does not have any imaging study of the brain. IMPRESSION AND PLAN: The patient's episode appeared to be alcohol withdrawal seizure. His Depakote can be slowly tapered off. It might be desirable to make sure he stabilizes before Keppra is withdrawn. He never had any imaging studies. I will suggest doing an imaging study just to make sure there is no [address] [address] CONSULTATION Name: MICKI HANSEN Room #: 242-P [facility] IN M.R.#: [id number] Admission: 09/22/18 Attend Phys: Taylor Rivera Discharge: Date of : 76 Report #: [id number] pathology sometime. Thank you very much for this referral and we will discuss this patient with you. <ELECTRONICALLY SIGNED> By: Pool Breaux MD 10/20/18 1043 [id number] [id number] Pool Breaux MD /nt
--- NOTE | 2018-10-20 13:45 | NUR ---
C/O OF SLIGHT HEADACHE AND IS MODERATELY ANXIOUS. PT IMPULSIVE IE WHEN HE JUST NEEDED TO VOID, HE SCOOTED DOWN IN BED THEN BEGAN TO STAND EVEN THOUGH SITTER PRESENT AT BEDSIDE. SITTER 1:1 PROVIDING ASSISTANCE.
--- NOTE | 2018-10-20 15:25 | NUR ---
[id number] pt walking in room, getting items out of his closet, put on both pair of shoes, gathering items together to leave. notified security of pt status. he ambulated right out of his room with all his items, despite 1:1 sitter at bedside. security arrived, then they were able to assist pt to come back to room and into bed. ativan 2 mg iv given, then scanned later, see mars. shoes off, nipb, wires reapplied.
[2018-10-20 18:42] LABS: HEMATOCRIT 29.3 % (42.0-52.0); HEMOGLOBIN 9.9 gm/dL (14.0-18.0); MCH 29.7 pg (26.0-34.0); MCHC 33.9 g/dL (28.0-37.0); MCV 87.6 fL (80.0-100.0); RBC 3.35 mil/uL (4.50-6.00); RDW 14.1 % (10.5-14.5); WBC 6.2 thou/uL (4.0-11.0)
[2018-10-20 18:59] LABS: ALBUMIN 3.1 g/dL (3.4-5.0); CALCIUM 9.2 mg/dL (8.5-10.1); POTASSIUM 3.8 mmol/L (3.5-5.1); TOTAL BILIRUBIN 0.3 mg/dL (<0.1-1.0); TOTAL PROTEIN 7.8 g/dL (6.4-8.2)
--- NOTE | 2018-10-20 19:30 | NUR ---
REPORT RECEIVED FROM PREVIOUS RN AT 1000. ASSUMED CARE. SEE MARS FOR LORAZEPAM ADMINISTRATION. IN AFTERNOON, BECAME AGITATED, WANT TO LEAVE, WALKED OUT OF ROOM, SECURITY CALLED. SEE PREVIOUS NOTE FOR DETAILS. PT'S BROTHER, BRANDI HANSEN PRESENT AND HE PROVIDED CALM, SUPPORT. HE STATED HE LIVES, WORKS CLOSE BY AND HE IS WILLING TO COME IN TO ASSIST WITH HIS BROTHER AT ANY TIME, ANY HOUR OF THE DAY. THIS EVENING PT CALM, REMAINING IN BED AND WATCHING TV WITH ONE TO ONE SITTER FOR HIS SAFETY AT HIS BEDSIDE. LORAZEPAM GIVEN PER HIS REQUEST FOR FEELING AGITATION. REPORT TO ONCOMING RN.
[2018-10-21] VITALS (10 sets, daily range): BP systolic 117–151; BP diastolic 65–104
--- NOTE | 2018-10-21 02:49 | NUR ---
Pt is very confused and impulsive. Not awares of his situation. Unabkle to re-orienting him. Call security x2 so far. Gave ativan PRN dose. No s/sx of any distress indicates. Continue to monitor him closely.
[2018-10-21 03:03] LABS: URINE BILIRUBIN NEGATIVE (Negative); URINE BLOOD NEGATIVE (Negative); URINE CLARITY CLEAR; URINE COLOR YELLOW; URINE GLUCOSE-RANDOM* NEGATIVE (Negative); URINE KETONES NEGATIVE (Negative); URINE LEUKOCYTES-REFLEX NEGATIVE (Negative); URINE NITRITE-REFLEX NEGATIVE (Negative); URINE PROTEIN (DIPSTICK) NEGATIVE (Negative); URINE UROBILINOGEN 0.2 E.U./dl (0.2-1.0)
[2018-10-21 04:57] LABS: ALBUMIN 3.4 g/dL (3.4-5.0); DIRECT BILIRUBIN 0.1 mg/dL (<0.1-0.3); TOTAL BILIRUBIN 0.4 mg/dL (<0.1-1.0); TOTAL PROTEIN 8.5 g/dL (6.4-8.2)
--- NOTE | 2018-10-21 06:20 | NUR ---
Insomnia in this shift. No hallucination indicates but still having a severe delirium this am. Gave Librium with little improvement. Will admin schedule ativan as order. Continue to have sitter 1:1 at bedside.
--- NOTE | 2018-10-21 07:45 | NUR ---
pt quickly escalated wanting to leave hospital, had shirt, shorts, shoes on. he is out of bed and ready to walk out. security called, then just arrived. praveen im given, well tolerated. with assist of 1:1 sitter and rn, pt took his clothing off and he only has a gown on. when pt dozed off to rest, rn placed his clothing and shoes in another cupboard in room out of his easy reach.
--- NOTE | 2018-10-21 14:13 | NUR ---
REMAINS IN ICU WITH 1:1 SITTER. DE-ESCALATING IV ATIVAN PER PSYCH AND ADDED LIBRIUM AND PRN GEODON FOR SEVERE AGITATION. PT HAD SOME AGITATION YESTERDAY. PER PSYCH NOTE, CONITNUE TO DE-ESCALATE IV ATIVAN OVER NEXT COUPLE DAYS ABLE. PT LIVES IN HOUSE WITH HIS BROTHER. NO WEEKEND DC PLANNED.
--- NOTE | 2018-10-21 17:56 | NUR ---
SHIFT SUMMARY: PT PROGRESSING THROUGH SHIFT. LONG WALKS IN THE ROACH X 3, WELL TOLERATED. SCHEDULED ATIVAN HELD X 1 SINCE SLEEPING, OTHER SCHEDULED DOSES GIVEN. SR/ST, ROOM AIR, TOLERATING PO- CONSUMING LIQUID SUPPLEMENTS, VOIDING ON TOILET. BRANDI PT'S BROTHER PRESENT X3 TODAY.
[2018-10-22] VITALS (10 sets, daily range): BP systolic 117–150; BP diastolic 79–102
--- NOTE | 2018-10-22 04:14 | NUR ---
Pt is continue progressing toward goals. No episode of agitation tonight. He remains very calm and coorperated this am. Able to sleep well after received scheduled ativan. Gave 1 mg PRN dose for anxiety with good effects. No hallucinations noted in this shift. Sitter 1:1 at bedside. VSS. Continue to monitor any changes.
--- NOTE | 2018-10-22 19:24 | NUR ---
PATIENT MORE APPROPRIATE TODAY, AMBULATED IN THE ROACH WITH SITTER. MOTHER HERE AND THOUGHT HE WAS MUCH BETTER TODAY. LESS IMPULSIVE. VSS.
[2018-10-23] VITALS (7 sets, daily range): BP systolic 120–129; BP diastolic 75–85
--- NOTE | 2018-10-23 04:47 | NUR ---
Pt remains calm tonight. He seems to be very appropriate. Slept well. No agitation episode. Ativan was given only twice on schedule since he appears calm and sleeping most of the time. So far no s/sx of Benzodiazepine withdrawal indicates. VSS. Sitter remains at bedside. His mother visited last night and would like to speak with psychiatrist if him/her available. Will pass thru next shift RN. He is continue progressing tward goals.
--- NOTE | 2018-10-23 18:32 | NUR ---
PATIENT MORE ALERT AND COOPERATIVE, REQUESTING ATIVAN AT TIMES WHEN SCHEDULED DOSE IS DUE. FAMILY AT BEDSIDE. ABLE TO CONVERSE WITH STAFF AND FAMILY. REASSURANCE GIVEN
[2018-10-24] VITALS: BP 116/84
--- NOTE | 2018-10-24 | NUR ---
PT HAD NEEDED A 1:1 SITTER. PT HAS CALM AND COOPERATIVE ALL NIGHT. WILL DC SITTER AT THIS TIME. PT IS ALERT AND ORIENTED. WILL CONT TO MONITOR
[2018-10-24 05:00] VITALS: BP 108/76
--- NOTE | 2018-10-24 06:00 | NUR ---
PT CONT TO BE CALM AND HAS SLEPT MOST OF NIGHT. VSS SINUS RHYTHM. PT ASKS FOR ANXIETY MED NEEDED. ATIVAN SCHEDULED Q 3 HRS AND PRN. STANDS TO VOID. VERY STEADY ON FEET. ORIENTED TIMES 4. PT IS ANXIOUS TO GET A SHOWER AGAIN TODAY AND WASH HAIR. WILL CONT TO MONITOR.
--- NOTE | 2018-10-24 06:45 | NUR ---
PT TX TO CCU ROOM 208 VIA W/C. PT CALM AWAKE AND ALERT. VERY APPRECIATIVE OF OUR CARE. WILL CONT TO MONITOR.
--- NOTE | 2018-10-24 06:56 | NUR ---
PT TRANSFERED FROM ICU TO ROOM 208 APPROX 0640HRS. MED SURGE TELE. DENIED PAIN UPON ARRIVAL TO THE UNIT.
[2018-10-24 07:33] VITALS: BP 141/76
--- NOTE | 2018-10-24 13:54 | NUR ---
met with patient and discussed dc planning. Patients mother from [place] at bedside. patient aware at [facility], aware transferred from ICU. He does not recall most of hospital stay but aware of month and year. Patient reports plan dc to home with brother. he reports he has [place] medicaid when he returnted to [place] for short time and then returned to [place] area. Requested [employer] meet with patient to convert to [place] medicaid. patient reports apt with psychiatrist next week. He does not sound committed to residential or even AA meetings. 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 he reports his car is not in good condition to be driving much for outpatient therapy. Patient has safety net clinic. Cont to encourage tx options.
--- NOTE | 2018-10-24 14:36 | NUR ---
FAXED FACE SHEET TO MINH AT [facility] TO HELP PT CONVERT TO [place] MEDICA[employer]. DCP TO VINNY.
--- NOTE | 2018-10-24 17:18 | NUR ---
ASSUMED CARE OF PT AT 0700, PT IS A/O TIMES FOUR, C/O MOSATLY ANXIETY AND PT RECIEVING ANTIANXIETY SCHEDULED. PT DENIES PAIN. VSS. WILL CONTINUE TO PROVIDE CARE TOWARDS GOALS.
[2018-10-24 20:45] VITALS: BP 133/83
--- NOTE | 2018-10-25 01:21 | NUR ---
patient is aox4 makes needs known. patient was slepy this shift. patient calm and cooperative with meds and care. no s/s of withdraws this shift. patient denied pain or discomfort. fall precaution in place. patient encouraged fluids. patient in bed asleep at this time breathing regular and unlaboured.
[2018-10-25 04:45] VITALS: BP 109/75; BP 137/85
[2018-10-25 08:40] VITALS: BP 119/79
--- NOTE | 2018-10-25 16:54 | NUR ---
ASSUMED CARE AT SHIFT CHANGE, ALERT, CALM AND COOPERATIVE. CIWA 0, AND MEDICATED ORDERED. S/B DR ELENA, DR PEARSON, AND WILL CONTINUE WITH POC
[2018-10-25 19:56] VITALS: BP 127/87
[2018-10-26 04:41] LABS: ALBUMIN 3.2 g/dL (3.4-5.0); CALCIUM 8.8 mg/dL (8.5-10.1); CREATININE 0.9 mg/dL (0.7-1.3); POTASSIUM 3.7 mmol/L (3.5-5.1); TOTAL BILIRUBIN 0.3 mg/dL (<0.1-1.0); TOTAL PROTEIN 7.4 g/dL (6.4-8.2)
[2018-10-26 04:45] VITALS: BP 120/81
--- NOTE | 2018-10-26 05:11 | NUR ---
RECEIVED REPORT AND ASSUMED PATIENT CARE AT 2330. PATIENT IS AAOX4, AND IS VERY PLEASANT AND APPROPRIATE TO THIS RN. PATIENT MEDICATED EVERY 4 HOURS WITH ATIVAN ORDERED. VS REMAINED STABLE AND NO ACUTE EVENTS OCCURRED. PATIENT IS PROGRESSING TOWARD GOAL.
[2018-10-26 08:00] VITALS: BP 144/96
--- NOTE | 2018-10-26 14:53 | NUR ---
Mom went home to [place]. Camilo has petinent information to inquire into [place]. Discussed with patient outpatient services specifically [facility] that has transportation if needed. Patient reviewing information he appears more interest in tx options than prev discussions.
--- NOTE | 2018-10-26 16:25 | NUR ---
PATIENT UP AD AME WITH STEADY BALANCED GAIT. AOX4. DENIES PAIN. CONTINUES ON SCHEDULED MEDS PER ORDERS. REPORT GIVEN TO MARI CARR AT 16:25.
--- NOTE | 2018-10-26 19:29 | NUR ---
PT ALERT AND ORIENTED. SCHEDULED ATIVAN GIVEN ORDERED. NO CONCERNS AT THIS TIME. WILL CONTINUE TO MONITOR.
[2018-10-26 19:45] VITALS: BP 127/78
[2018-10-27] VITALS (7 sets, daily range): BP systolic 106–171; BP diastolic 54–86
--- NOTE | 2018-10-27 05:08 | NUR ---
ASSUMED PT CARE AT 1900 WITH NO SIGN OF DISTRESS NOTED. PT IS ALERT AND ORIENTED. NO FAMILY AT BEDSIDE. PT IS STABLE. VITAL SIGNS STABLE. ASSESSMENT COMPLETED. SCHEDULED MEDS ADMINISTERED TO PT. PT TOLERATED PO INTAKE. DENIES ANY FURTHER NEEDS AT THIS TIME.
[2018-10-27 13:20] LABS: AMP/METHAMP Negative (Negative); BARBITURATES Negative (Negative); BENZODIAZEPINES POSITIVE (Negative); COCAINE Negative (Negative); METHADONE Negative (Negative); OPIATES Negative (Negative); PCP Negative (Negative)
[2018-10-27 17:06] LABS: BE(vivo) 0.9 mmol/L (-2 to +3); HCO3 23.2 mmol/L (22.0-26.0); PO2 68.1 mmHg (80.0-100.0); pH 7.506 (7.360-7.450); sO2 95.3 % (92.0-98.0)
[2018-10-27 18:15] LABS: HEMATOCRIT 34.3 % (42.0-52.0); HEMOGLOBIN 11.4 gm/dL (14.0-18.0); MCH 28.9 pg (26.0-34.0); MCHC 33.2 g/dL (28.0-37.0); MCV 87.1 fL (80.0-100.0); RBC 3.94 mil/uL (4.50-6.00); RDW 14.9 % (10.5-14.5); WBC 10.5 thou/uL (4.0-11.0)
--- NOTE | 2018-10-27 19:17 | NUR ---
ASSUMED CARE OF PATIENT AT 0700. AIR TUCKER STATED THAT SHE BELIEVED SHE COULD SMELL ALCOHOL IN THE ROOM, REPORTED TO DR. PEARSON. SERUM ALCOHOL DRAWN. AT 1030, WENT IN PATIENT ROOM AND HE WAS TURNED ON HIS RIGHT SIDE IN THE POSITION COMPLAINING OF BEING COLD AND TEETH WERE CHATTERING. PATIENT GIVEN A WARM BLANKET AND VITALS TAKEN. ONE HOUR LATER, PATIENT WAS VISIBLY MORE COMFORTABLE AND VITALS WERE RETAKEN. URINE DRUG SCREEN COLLECTED. PATIENT TREATED WITH TYLENOL, ICE PACKS IN AXILLA AND COLD WASH CLOTH ON FOREHEAD. PATIENT CONTINUE WITH TEMP OF 102. EKG, FLUIDS STARTED AND LABS DRAWN. PATIENT TO CONTINUE WITH POC.
--- NOTE | 2018-10-28 02:25 | NUR ---
ASSUMED PT CARE AT 1900 WITH NO SIGN OF DISTRESS NOTED. PT IS ALERT AND ORIENTED. NO FAMILY AT BEDSIDE. VITAL SIGNS STBLE EXCEPT FOR HIGH TEMP AND HEART RATE. TYELNOL ADMINISTERED. SCHEDULED MEDS ADMINISTERED TO PT. PT IS STABLE. DENIES ANY NEEDS AT THIS TIME. TRANSFERRED CARE TO ARTURO CARR AT 0200.
[2018-10-28 04:29] VITALS: BP 97/55
--- NOTE | 2018-10-28 07:00 | NUR ---
ASSUME CARE 0200. PT/VITALS STABLE. BP RUNS SOFT. FEVER NOTED/STABILIZED. DENEIS PAIN. RESGTING QUIETLY IN ROOM. A/O. UP AD AME. PROGRESSING WITH POC. TOLERATING SCHEDULED ATIVAN. NO AGITATION NOTED. EMILY IS TO CONTINUE TAPERING ATIVAN AND LITHIUM AND POSSIBLE DISCHARGE WEDNESDAY OR WEDNESDAY. WILL CONTINUE TO FOLLOW [facility] POC
[2018-10-28 07:15] VITALS: BP 111/59
[2018-10-28] MEDS ORDERED: DEPAKOTE 250MG250 M1 PO (14:11)
[2018-10-28] MEDS ORDERED: CATAPRES-TTS 20.2 MG TRANSDERM (14:11)
[2018-10-28 14:54] VITALS: BP 111/59
[2018-10-28 15:35] VITALS: BP 104/65
--- NOTE | 2018-10-28 17:10 | NUR ---
Pt had ride here today thinking he was dcing home. Likely dc tomorrow. Two scripts vouchered per cm and filled at the outpt pharmacy for a total of $64.23. Meds given to BRUNO Finney. Marta ibrahim resource numbers and f/u care options for community clinic provided in the pt's dc instructions.
[2018-10-28 17:12] VITALS: BP 111/59
--- NOTE | 2018-10-28 17:18 | NUR ---
[facility] liason here this am to eval and collect clinical info. She returned at 1300 to visit with the pt's spouse at bedside. Spouse encouraged to tour [facility] for possible dc there Wednesday. [facility] has contacted the pt's ins plan to request auth. CM RN talking with the ins cm also to help with smooth transition to ltac level of care. Pt's spouse indicates that they have applied for [place] medicaid and she believes they got approved with a spend down.
--- NOTE | 2018-10-28 18:36 | NUR ---
ASSUMMED PT CARE AT APPROXIMATELY 0700. PT A&O X4. ASSESSMENT CHARTED. FALL PRECAUTIONS IN PLACE. PT AMBULATES INDEPENDENT AND IS STEADY WHEN WALKING. PT HAS DENIED CHEST PAIN AND DENIED SOB. PT HAS HAD A LOW GRADE FEVER THROUGHOUT THE DAY. NOTIFIED. GIVING PRN MEDICATIONS FOR FEVER. CONTINUING TO MONITOR TEMP. V/S STABLE. PT'S PICC LINE DC. PICC LINE DRESSING WAS C/D/I. NO REDNESS OR DRAINAGE PRESENT. PT'S FAMILY VISITED. PT AND FAMILY EDUCATED ABOUT PT'S STATUS. PT AND PT'S FAMILY DENIED FURTHER QUESTIONS. PT RECIEVED CT OF ABD. WAITING TO SEE RESULTS. WAITING TO SEE THE NEXT STEP IN THE PT'S POC.
[2018-10-28 21:43] VITALS: BP 99/66
[2018-10-29 05:36] LABS: ABSOLUTE NEUTROPHILS 3.6 thou/uL (1.4-8.2); BASOPHILS 0.8 % (0.0-2.0); EOSINOPHILS 5.5 % (0.0-3.0); HEMATOCRIT 31.3 % (42.0-52.0); HEMOGLOBIN 10.6 gm/dL (14.0-18.0); LYMPHOCYTES 19.1 % (24.0-44.0); MCH 29.3 pg (26.0-34.0); MCHC 33.9 g/dL (28.0-37.0); MCV 86.4 fL (80.0-100.0); POLYS 64.6 % (36.0-66.0); RBC 3.62 mil/uL (4.50-6.00); RDW 14.8 % (10.5-14.5); WBC 5.5 thou/uL (4.0-11.0)
[2018-10-29 05:45] LABS: PLATELET COUNT 148 thou/uL (150-400)
[2018-10-29 05:53] LABS: CALCIUM 8.7 mg/dL (8.5-10.1); CREATININE 1.2 mg/dL (0.7-1.3); POTASSIUM 4.3 mmol/L (3.5-5.1); TOTAL BILIRUBIN 0.4 mg/dL (<0.1-1.0); TOTAL PROTEIN 7.2 g/dL (6.4-8.2)
[2018-10-29 06:14] VITALS: BP 110/65
--- NOTE | 2018-10-29 07:24 | NUR ---
ASSUME CARE 1900. PT/VITALS STABLE. TEMP RUNS HIGH AT 99. EPISODES OF DIAPHORESIS NOTED THROUGH THE NIGHT. PT A/O X 4. PLEASANT. ASSESSMENT CHARTED. PROGRESSING WELL WITH POC. POSITIVE BLOOD CULTURES NOTED FOR GRAM POSITIVE COCCI. ABX STARTED. PLAN IS TO START WITH ABX AND CONTINUE TO MONITOR LOC/WITHDRAWAL. WILL CONTINUE TO MONITOR AND FOLLOW WITH POC
[2018-10-29 08:10] VITALS: BP 115/72
[2018-10-29 12:10] VITALS: BP 106/66
[2018-10-29 16:20] VITALS: BP 126/77
--- NOTE | 2018-10-29 16:51 | NUR ---
ASSUMMED PT CARE AT APPROXIMATELY 0700. PT A&O X4. FALL PRECAUTIONS IN PLACE. ASSESSMENT CHARTED. PT STATED HE HAS HAD ZERO PAIN. PT AMMBULATES INDEPENDENTLY AND IS STABLE. INSERTED NEW IV ON R FOREARM. IV IS C/D/I. PT STARTED IV ABX TODAY. PT HAS BEEN AFEBRILE THROUGHOUT THE SHIFT. PT HAS NOT BEEN DIAPHORETIC. PT HAS NOT BEEN SHIVERING. PT STATES HE IS FEELING BETTER COMPARED TO YESTERDAY. ENCOURAGING PT TO DRINK FLUIDS AND EAT.
--- NOTE | 2018-10-29 18:19 | NUR ---
PT'S BROTHER VISITED. PT AND PT'S BROTHER UPDATED/EDUCATED WITH INFORMATION RELATED PT'S CURRENT STATUS AND POC. PT AND PT'S BROTHER DENIED HAVING FURTHER QUESTIONS.
[2018-10-29 20:02] VITALS: BP 119/64
[2018-10-30 05:19] LABS: HEMATOCRIT 29.1 % (42.0-52.0); HEMOGLOBIN 9.7 gm/dL (14.0-18.0); MCH 29.1 pg (26.0-34.0); MCHC 33.4 g/dL (28.0-37.0); MCV 87.2 fL (80.0-100.0); RBC 3.34 mil/uL (4.50-6.00); RDW 14.9 % (10.5-14.5); WBC 5.3 thou/uL (4.0-11.0)
[2018-10-30 05:40] VITALS: BP 111/59
--- NOTE | 2018-10-30 06:03 | NUR ---
ASSUMED PT CARE AT 1900 WITH NO SIGN OF DISTRESS NOTED IN PT. PT IS ALERT AND ORIENTED. NO FAMILY AT BEDSIDE. PT IS STABLE. ASSESSMENT COMPLETED AND CHARTED. SCHEDULED MEDS ADMINISTERED TO PT. NO SIGN OF DISTRESS NOTED. NO FEVER NOTED. CONTINUE TO MONITOR.
[2018-10-30 07:40] VITALS: BP 99/62
[2018-10-30 11:05] VITALS: BP 113/74
--- NOTE | 2018-10-30 11:49 | NUR ---
PT CARE ASSUMED APPROX 0700. PT ALERT AND ORIENTED X4. DENIES PAIN AND SOA. VSS. UP WITH STEADY GAIT. PT LEFT AMA AT APPROX 1120 AFTER REPORTING TO NURSE THAT HE WAS "SICK OF BEING HERE AND READY TO." DR PEARSON WAS NOTIFIED AND ROUNDED ON PT. NO NEW ORDERS. PT WAS EDUCATED ON POSSIBLE CLINICAL OUTCOMES OF LEAVING HOSPITAL PRIOR TO COMPLETING POC AND BEFORE DRs AGREE THAT TREATMENT PLAN IS COMPLETE. PT REMAINS INSISTENT ON LEAVING. AMA PAPERWORK SIGNED. IV OUT. PT LEFT UNIT WITHOUT ISSUE. PT DENIED EVER BEING UPSET OR UNHAPPY WITH CARE. REPORTS "JUST BEING READY TO GO."
--- NOTE | 2018-11-01 07:26 | EKG ---
[address] [place] [address] ELECTROCARDIOGRAM REPORT Name: JADEMICKI Room #: 208-P [facility] IN M.R.#: [id number] Admission: 09/22/18 Attend Phys: Buddy Henriquez DO Discharge: 10/30/18 Date of : 76 Report #: [id number] THIS REPORT FOR: //name// [facility] Test Date: 2018-10-27 Test Time: 17:24:04 Pat Name: MICKI HANSEN Department: Room: 208 P Gender: M Graphics Editor: Beronica IRIZARRY : 1980 Requested By: Breezy Ospina Order Number: [id number] MD: Domingo Melara Measurements Intervals [place] Rate: 124 P: 74 SC: 129 QRS: 57 QRSD: 69 T: -2 QT: 277 QTc: 398 Interpretive Statements Sinus tachycardia Nonspecific ST segment abnormality Compared to ECG 10/16/2018 09:48:16 No significant change was found Electronically Signed On 11-01-2018 7:25:54 CDT by Domingo Melara [email or web address] <ELECTRONICALLY SIGNED> By: Domingo Melara MD, [facility] 11/01/18 0725 [id number] 23 Domingo Melara MD, [facility] /EPI
== END 2018-10-30 12:06 | disposition left against medical advice (07) | DRG 207 ==
LOC: ER 14:14 → 4E 18:24 → ICU 18:24 → EROBS 18:24 → 4E 19:39 → 3W 09-23 11:33 → ICU 09-24 05:24 → 2N 10-24 06:52
PROVIDERS: Hospitalist; Internal Medicine; Internal Medicine Gastroenterology; Internal Medicine Pulmonary Disease; Nurse Practitioner; Nurse Practitioner Acute Care; Pediatrics; Physician Assistant; Psychiatry & Neurology Addiction Medicine; Psychiatry & Neurology Psychiatry; Specialist; ADMIT Internal Medicine Geriatric Medicine
PROC: 02HV33Z Insertion of Infusion Device into Superior Vena Cava, Percutaneous Approach (ICD-10-PCS; principal; 2018-09-26)
PROC: 0BH17EZ Insertion of Endotracheal Airway into Trachea, Via Natural or Artificial Opening (ICD-10-PCS; principal; 2018-09-26)
PROC: 0D9670Z Drainage of Stomach with Drainage Device, Via Natural or Artificial Opening (ICD-10-PCS; principal; 2018-09-26)
PROC: 5A1955Z Respiratory Ventilation, Greater than 96 Consecutive Hours (ICD-10-PCS; principal; 2018-09-26)
PROC: 0B9F8ZX Drainage of Right Lower Lung Lobe, Via Natural or Artificial Opening Endoscopic, Diagnostic (ICD-10-PCS; 2018-10-07)
DX: J69.0 Pneumonitis due to inhalation of food and vomit (principal); K85.20 Alcohol induced acute pancreatitis without necrosis or infection; J96.01 Acute respiratory failure with hypoxia; G93.40 Encephalopathy, unspecified; N17.9 Acute kidney failure, unspecified; E87.2 Acidosis; R65.10 Systemic inflammatory response syndrome (SIRS) of non-infectious origin without acute organ dysfunction; K86.3 Pseudocyst of pancreas; E87.0 Hyperosmolality and hypernatremia; J98.11 Atelectasis; J15.211 Pneumonia due to Methicillin susceptible Staphylococcus aureus; I10 Essential (primary) hypertension; F41.9 Anxiety disorder, unspecified; F10.10 Alcohol abuse, uncomplicated; F14.10 Cocaine abuse, uncomplicated; F12.10 Cannabis abuse, uncomplicated; K70.0 Alcoholic fatty liver; I95.9 Hypotension, unspecified; K70.10 Alcoholic hepatitis without ascites; F15.10 Other stimulant abuse, uncomplicated; D64.9 Anemia, unspecified; E78.1 Pure hyperglyceridemia; R56.9 Unspecified convulsions; R73.9 Hyperglycemia, unspecified; E83.42 Hypomagnesemia; F17.210 Nicotine dependence, cigarettes, uncomplicated; Z90.49 Acquired absence of other specified parts of digestive tract; Z79.899 Other long term (current) drug therapy; Z82.49 Family history of ischemic heart disease and other diseases of the circulatory system
CPT/HCPCS: 10078; 10084; 10203; 10797; 10879; 27000; 62110; 62900